=== PATIENT | female | born 1975 | race Caucasian/White ===

== ENCOUNTER 2019-02-14 10:44 | Outpatient (CLI) | payer MEDICAID, SELFPAY ==
--- NOTE | 2019-02-14 10:53 | CT_ITS ---
WS: [id number] CT ANGIOGRAM CEREBRAL AND CAROTID ARTERIES HISTORY: CEREBRAL ANEURYSM TECHNIQUE: CT angiogram is performed of the carotid and cerebral arteries. During arterial injection imaging is obtained from the skull vertex to the aortic arch in 1.25 mm imaging. Coronal and sagittal reformats are submitted. Additional multi planar reformats of the carotid and cerebral arteries are submitted, MIP imaging also reviewed. NASCET criteria utilized. All CT scans at [facility] use at least one of these dose optimization techniques: automated exposure control; mA and/or kV ad justment per patient size (includes targeted exams where dose is matched to clinical indication); or iterative reconstruction. CONTRAST: Omnipaque 350; 95 mL IV. DLP: 1870.60 mGy-cm. COMPARISON: 08/20/2018 and 05/17/[address] first performed is negative for hemorrhage, atrophy or edema. Carotid Angiogram: Right carotid: Common carotid artery: Arises normally from the innominate artery. No significant plaque or stenosis. Internal carotid artery: No plaque or stenosis. External carotid artery: Patent. Left carotid: Common carotid artery: Arises normally from the aorta. No significant plaque or stenosis. Internal carotid artery: No plaque or stenosis. External carotid artery: Patent. Right vertebral artery: Unremarkable. Left vertebral artery: Unremarkable. Arises normally from the subclavian artery. Subclavian arteries: No stenosis or significant abnormality. Upper thorax: Chronic emphysema. No nodule. Thyroid gland: Normal. Osseous structures: Unremarkable. CEREBRAL ANGIOGRAM: Intracranial vertebral arteries: Normal with no significant atherosclerosis. Basilar artery: No significant stenosis or occlusion. No aneurysm. Intracranial Internal carotid arteries: Again noted is a tiny bulging consistent with a very aneurysm in the supraclinoid RIGHT ICA measuring 2 mm. No increase in size. LEFT supraclinoid previously desc ribed aneurysm is not identified. No significant stenosis or atherosclerotic plaque. No new or progre ssing aneurysm. Middle cerebral arteries: Normal. Anterior cerebral arteries and ACOM: Normal. Posterior cerebral arteries and PCOM's: Normal. Dural venous sinuses are normally enhancing. Mastoid air cells: Normal. Paranasal sinuses: Normal. Calvarium: Normal. CT/CT angio headneck* [id number] IMPRESSION: 1. Normal carotid arteries. 2. 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 No ch puneet since 05/17/2016. No additional aneurysms identified.
[2019-02-14] MEDS: iohexol 350 mg/mL 100 mL Btl IV (11:22)
== END 2019-02-14 10:45 | disposition home or self-care (01) ==
LOC: RADWPI 10:47
PROVIDERS: Family Provider Nurse Practitioner; PCP Nurse Practitioner; Referring Provider Nurse Practitioner; Visit Provider Licensed Practical Nurse
DX: I67.1 Cerebral aneurysm, nonruptured (principal)
CPT/HCPCS: 70496; 70498; Q9967

== ENCOUNTER 2019-02-20 10:46 | Outpatient (CLI) | payer MEDICAID, SELFPAY ==
--- NOTE | 2019-02-20 10:50 | MM_ITS ---
WS: [id number] SCREENING DIGITAL MAMMOGRAM WITH CAD HISTORY: SCREENING COMPARISON: 02/14/2018 and 01/26/2017 Bilateral CC and MLO views submitted. Computer aided detection analyzed. Breast composition: There are scattered areas of fibroglandular density. No suspicious masses, microc alcifications or architectural distortion. Stable lymph node lateral RIGHT breast. MM/[place] [id number] IMPRESSION: BI-RADS: 2-Benign FOLLOW UP: 1 Year Follow-up
== END 2019-02-20 10:47 | disposition home or self-care (01) ==
LOC: RADSHAW 10:46
PROVIDERS: Family Provider Nurse Practitioner; PCP Family Medicine; Visit Provider Nurse Practitioner
DX: Z12.31 Encounter for screening mammogram for malignant neoplasm of breast (principal)
CPT/HCPCS: 77067

== ENCOUNTER 2019-03-02 06:45 | Emergency (ER) | payer MEDICAID, SELFPAY ==
[2019-03-02 07:01] VITALS: BP 188/77; PULSE 80; RESP 20; TEMP 36.7; O2SAT 95; BMI 37.6
--- NOTE | 2019-03-02 07:08 | ED_ITS ---
HPI - Back Pain/Injury General: Chief Complaint: Back Pain/Injury Stated Complaint: Back/side pain Time Seen by Provider: 03/02/19 06:59 History of Present Illness: Associated symptoms: Reports dysuria and hematuria; Deny abdominal pain, chills, fatigue, fever(s), nausea, urinary urgency or vomiting Review of Systems Const: Denies: fever, chills, body aches, change in appetite, fatigue or malaise ENMT: Denies: throat pain, ear pain, nasal discharge or nasal congestion Card: Denies: chest pain, edema, shortness of breath on exertion or shortness of breath when lying down Resp: Denies: shortness of breath, productive cough or non-productive cough GI: Denies: abdominal pain, nausea, vomiting, vomiting blood, coffee grounds in vomit, diarrhea, constipation, bloating, blood in stool or black tarry stool : Reports: flank pain, painful urination and blood in urine; Denies: difficulty urinating, urinary frequency or urinary urgency Skin/Breast: Denies: rash or itching PFSH ED PFSH: Statuses (acute, chronic, etc) shown below reflect problem list status as previously entered and may not be historically accurate Social History Smoking and tobacco status: current every day smoker Physical Exam Const: COMMON NORMALS: no apparent distress GENERAL APPEARANCE: cooperative and comfortable ORIENTATION/CONSCIOUSNESS: Yes awake, Yes oriented to person, Yes oriented to place and Yes oriented to time HENMT: COMMON NORMALS: normocephalic, head/scalp atraumatic, hearing grossly normal bilaterally, external ears normal, EAC's normal, TM's normal bilaterally, nasal mucous membranes and turbinates normal, moist oral mucous membranes and oropharynx normal HEAD & SCALP: normocephalic and atraumatic NOSE: nasal mucous membranes and turbinates normal EXTERNAL EAR: Yes external ears normal EXTERNAL AUDITORY CANAL: EAC's normal TYMPANIC MEMBRANE: TM's normal bilaterally Eye: COMMON NORMALS: PERRL, EOMs intact bilaterally, conjunctivae normal and no scleral icterus CONJUNCTIVA: Yes conjunctivae normal PUPIL: Yes PERRL Neck/C-Spine: COMMON NORMALS: full ROM, no lymphadenopathy, supple and no JVD Lymph: LYMPHATIC: no lymphadenopathy noted and no lymphedema noted Resp: COMMON NORMALS: normal respiratory effort, no retractions, no use of accessory muscles and clear to auscultation bilaterally AUSCULTATION: clear to auscultation bilaterally Cardio: COMMON NORMALS: no JVD, regular rate, regular rhythm and no murmurs RATE: regular rate RHYTHM: regular rhythm GI: COMMON NORMALS: soft to palpation and no hepatosplenomegaly AUSCULTATION: Yes normoactive bowel sounds PALPATION: Yes soft, No tender, No guarding and Yes no hepatosplenomegaly : BLADDER/KIDNEY EXAM: Yes CVA tenderness on the right Back/Pelvis: GENERAL BACK: Yes CVA tenderness Extremity: COMMON NORMALS: normal to inspection, normal capillary refill, no clubbing, cyanosis or edema, no calf tenderness and no pedal edema Neuro: SENSORIUM/ORIENTATION: Yes oriented to person, Yes oriented to place and Yes oriented to time Skin: COMMON NORMALS: no rashes or lesions noted GENERAL SKIN EXAM: no rashes or lesions noted Course ED course: Discussed with Dr. Huddleston. Will go ahead and treat her as an outpatient her pain is under control now here in the emergency room will discharge home pain medications antiemetics Flomax and a urine strainer. Will have patient follow-up with Dr. Huddleston on Monday in the office should be n.p.o. at that time pain becomes uncontrolled return to the emergency room Vital Signs: Vital signs: Vital Signs Temperature 98.1 F 03/02/19 07:01 Pulse Rate 87 03/02/19 09:18 Respiratory Rate 20 H 03/02/19 07:01 Blood Pressure 124/79 03/02/19 09:18 Pulse Oximetry 93 03/02/19 09:18 MDM - Back Pain/Injury Lab Data: Labs: Lab Results 03/02/19 03/02/19 03/02/19 Range/Units 07:20 07:20 07:23 WBC 11.2 H (4.0-10.0) 10^3/ uL RBC 5.03 (4.1-5.3) 10^6/u L Hgb 13.3 (11.5-15.3) g/dL Hct 41.8 (37.0-47.0) % MCV 83.1 (81-99) fL MCH 26.4 L (28.0-34.0) pg MCHC 31.8 (30.0-36.0) g/dL RDW 13.8 (12.1-15.1) % Plt Count 277 (130-400) 10^3/c mm MPV 9.2 (7.4-10.4) fL Neut % (Auto) 75.1 % Lymph % (Auto) 16.8 % [place] % (Auto) 5.5 % Eos % (Auto) 1.9 % Baso % (Auto) 0.3 % Neut # (Auto) 8.4 H (1.8-7.7) 10^3/u L Lymph # (Auto) 1.9 (0.8-4.8) 10^3/u L [place] # (Auto) 0.6 (0.2-0.9) 10^3/u L Eos # (Auto) 0.2 (0.0-0.8) 10^3/u L Baso # (Auto) 0.0 (0.0-0.1) 10^3/u L Nucleated RBC % (a uto) 0 % Nucleated RBCs # 0.0 /100WBC Sodium 137 (136-145) mmol/L Potassium 4.6 (3.5-5.1) mmol/L Chloride 100 (98-107) mmol/L Carbon Dioxide 25 (22-29) mmol/L Anion Gap 16.6 (5-19) BUN 14 (6-20) mg/dL Creatinine 0.8 (0.5-0.9) mg/dL GFR Calculation 78.3 L (90-130) mL/min Glucose 134 H (74-109) mg/dL Calcium 9.9 (8.5-10.5) mg/dL Total Bilirubin 0.4 (0.15-1.2) mg/dL AST 19 (0-32) U/L ALT 27 (0-33) U/L Alkaline Phosphata se 109 H (35-105) IU/L Total Protein 7.2 (6.6-8.7) g/dL Albumin 4.8 (3.5-5.2) g/dL Globulin 2.4 (1.3-4.6) g/dL Urine Color Yellow (Yellow) Urine Appearance Sl hazy (CLEAR) Urine pH 5 (5-7) Ur Specific Gravit y 1.020 (1.005-1.030) Urine Protein Trace (Negative) Urine Glucose (UA) Norm (Normal) Urine Ketones 1+ H (Negative) Urine Occult Blood 3+ H (Negative) Urine Nitrate Negative (Negative) Urine Bilirubin 1+ H (NEGATIVE) Urine Urobilinogen Norm (Negative) mg/dL Ur Leukocyte [place] a[place] Negative (Negative) Urine RBC 50-80 H (0-2) /hpf Urine WBC 5-10 H (0-5) /hpf Ur Squamous Epith Cells 5-10 H (0-5) Urine Bacteria 1+ H (NONE) Hyaline Casts Rare Urine Mucus Trace Urine Yeast Trace Imaging Data^: KUB: Radiologist's impression: Ordering Provider/Ordering MD: Rhys Stockton DO Date of Service: 03/02/19 Procedure(s): XR KUB portable [id number] Accession Number(s): [id number] Report Number: [id number] PROCEDURE INFORMATION: Exam: XR Abdomen, 1 View Exam date and time: 03/02/2019 7:20 AM Age: 44 years old Clinical indication: Abdominal pain; Right; Prior surgery; Surgery type: Csection; Patient HX: Transient RT flank pain x 3 days. History of renal calculus. ; Additional info: Renal stone/flank pain TECHNIQUE: Imaging protocol: XR of the abdomen. Views: Frontal supine view of the abdomen. 1 View. COMPARISON: CR Abdomen 2 views [id number] 07/21/2015 9:42 PM FINDINGS: Gastrointestinal tract: Scattered bowel gas. Organs: Limited delineation of the renal outline bilaterally. Bones/joints: Two adjacent calcifications suspected in the right abdomen slightly above the medial right iliac bone which could be genitourinary in location. Calcifications measure approximately 0.5 and 0.4 cm. XR/XR KUB portable [id number] IMPRESSION: 1. Two rounded calcifications right abdomen which could be genitourinary in location. 2. Otherwise unremarkable KUB. Dictated By: Mary Carmen Hammer DO CT Abd/Pel: Radiologist's impression: Exam: CT Abdomen And Pelvis Without Contrast Exam date and time: 03/02/2019 8:16 AM Age: 44 years old Clinical indication: Abdominal pain; Right; Prior surgery; Surgery date: 6+ months; Surgery type: Csection; Patient HX: Transient RT flank pain. X3 days, HX of renal stones; Additional info: Renal stones/hematuria TECHNIQUE: Imaging protocol: Computed tomography of the abdomen and pelvis without contrast. Total DLP: 1587.27 mGy-cm Radiation optimization: All CT scans at this facility use at least one of these dose optimization techniques: automated exposure control; mA and/or kV adjustment per patient size (includes targeted exams where dose is matched to clinical indication); or iterative reconstruction. COMPARISON: CT Abdomen/Pelvis Renal [id number] 05/29/2017 4:41 AM FINDINGS: Lungs: Areas of pleural parenchymal scarring or atelectasis lower lungs. Liver: Hepatomegaly longitudinal diameter 20.6 cm. Gallbladder and bile ducts: Normal. No calcified stones. No ductal dilation. Pancreas: Normal. No ductal dilation. Spleen: Scattered splenic granulomatous calcifications. Adrenals: Bilateral adrenal gland nodules measuring 1.5 cm on the right and 2.0 cm on the left are stable. There is a nodule anterior to the left kidney below the margin of left adrenal gland suspicious for retroperitoneal lymph node is stable measuring 1.7 cm. Other small retroperitoneal lymph nodes are present. Kidneys and ureters: Stranding surrounding the right kidney with right pelvicaliectasis with obstructing calculi in the proximal right ureter with suspected 2 adjacent calculi upper calculus measuring 0.42 by 0.51 cm and the lower calculus measuring 0.31 by 0.46 cm. Stomach and bowel: Scattered colonic diverticuli. Appendix: No evidence of appendicitis. Intraperitoneal space: Unremarkable. No free air. No significant fluid collection. Vasculature: Trace calcification distal abdominal aorta. Lymph nodes: See Adrenals Finding. Bladder: Unremarkable as visualized. Reproductive: Unremarkable as visualized. Bones/joints: Degenerative change of the spine. Soft tissues: Minimal umbilical hernia containing fatty omentum. Cutaneous or subcutaneous cyst lower left chest wall. CT/CT kidney stone [id number] IMPRESSION: 1. Obstructing proximal right ureteral calculi. 2. Stable bilateral adrenal gland nodules by Hounsfield density most suggestive of benign adenomas.No follow-up is necessary. 3. Minor colonic diverticulosis. 4. Hepatomegaly. Radiation Dose CTDIVOL = (mGy): DLP = 1587.27 (mGy-cm) Dictated By: Mary Carmen Hammer DO Discharge Plan Discharge Patient Disposition: Home, Self-Care Clinical Impression: Nephrolithiasis Condition: Stable Prescriptions: [place] 5-325 mg tablet 1 tab PO Q6H PRN (Reason: pain) Qty: 20 RF: 0 Flomax 0.4 mg capsule 0.4 mg PO Q24H Qty: 14 RF: 0 Zofran 4 mg tablet 4 mg PO Q6H PRN (Reason: nausea and vomiting) Qty: 20 RF: 0 No Action hydroxyzine HCl 25 mg Tablet 25 mg PO BID PRN (Reason: sleep) RF: 0 Symbicort 80-4.5 mcg/actuation Hfa Aerosol Inhaler See Rx Instructions .ROUTE .COMPLEX RF: 0 Discharge Orders: Discharge Order (Routine); Ordered 03/02/19 Ordered By: Rhys Stockton Referrals: Ruddy Huddleston MD [Physician] - (Follow up for renal stones on Monday. Please do not eat after midnoght on Monday night in the event a procedure is needed for the kidney stones.) Discharge Diet: Advance as tolerated Discharge Activity: Increase activity as tolerated Discharge Date/Time: 03/02/19 09:48 Coding Level of Care Code ED Product Development Consultant for Chg Fwd Exam Problem Focused
--- NOTE | 2019-03-02 07:11 | XRR_ITS ---
PROCEDURE INFORMATION: Exam: XR Abdomen, 1 View Exam date and time: 03/02/2019 7:20 AM Age: 44 years old Clinical indication: Abdominal pain; Right; Prior surgery; Surgery type: Csection; Patient HX: Transient RT flank pain x 3 days. History of renal calculus. ; Additional info: Renal stone/flank pain TECHNIQUE: Imaging protocol: XR of the abdomen. Views: Frontal supine view of the abdomen. 1 View. COMPARISON: CR Abdomen 2 views [id number] 07/21/2015 9:42 PM FINDINGS: Gastrointestinal tract: Scattered bowel gas. Organs: Limited delineation of the renal outline bilaterally. Bones/joints: Two adjacent calcifications suspected in the right abdomen slightly above the medial right iliac bone which could be genitourinary in location. Calcifications measure approximately 0.5 and 0.4 cm. XR/XR KUB portable [id number] IMPRESSION: 1. Two rounded calcifications right abdomen which could be genitourinary in location. 2. Otherwise unremarkable KUB.
[2019-03-02 07:24] LABS: Basophils % 0.3 %; Eosinophils # 0.2 10^3/uL (0.0-0.8); Eosinophils % 1.9 %; Hematocrit 41.8 % (37.0-47.0); Hemoglobin 13.3 g/dL (11.5-15.3); Lymphocytes # 1.9 10^3/uL (0.8-4.8); Lymphocytes % 16.8 %; Mean Corpuscular HGB Conc 31.8 g/dL (30.0-36.0); Mean Corpuscular Hemoglobin 26.4 pg (28.0-34.0); Mean Corpuscular Volume 83.1 fL (81-99); Mean Platelet Volume 9.2 fL (7.4-10.4); Monocytes # 0.6 10^3/uL (0.2-0.9); Monocytes % 5.5 %; Neutrophils # 8.4 10^3/uL (1.8-7.7); Neutrophils % 75.1 %; Nucleated Red Blood Cells % 0 %; Platelet Count 277 10^3/cmm (130-400); Red Blood Count 5.03 10^6/uL (4.1-5.3); Red Cell Distribution Width 13.8 % (12.1-15.1); White Blood Count 11.2 10^3/uL (4.0-10.0)
[2019-03-02 07:31] VITALS: O2SAT 96
--- NOTE | 2019-03-02 07:33 | PC.NURSE ---
portable xray at bedside
[2019-03-02] MEDS: sodium chloride 0.9% 1,000 ML 999 ML IV (07:41)
[2019-03-02] MEDS: morphine 4 mg/mL SDV 1 mL IVP ×2 (07:41→08:26)
[2019-03-02] MEDS: ondansetron 2 mg/ML SDV 2 mL 4 MG IVP (07:41)
[2019-03-02 07:42] LABS: Alanine Aminotransferase 27 U/L (0-33); Albumin Level 4.8 g/dL (3.5-5.2); Alkaline Phosphatase 109 IU/L (35-105); Anion Gap 16.6 (5-19); Aspartate Amino Transferase 19 U/L (0-32); Blood Urea Nitrogen 14 mg/dL (6-20); Calcium 9.9 mg/dL (8.5-10.5); Carbon Dioxide 25 mmol/L (22-29); Chloride 100 mmol/L (98-107); Globulin 2.4 g/dL (1.3-4.6); Glomerular Filtration Rate 78.3 mL/min (90-130); Glucose 134 mg/dL (74-109); Potassium 4.6 mmol/L (3.5-5.1); Sodium 137 mmol/L (136-145); Total Bilirubin 0.4 mg/dL (0.15-1.2); Total Protein 7.2 g/dL (6.6-8.7)
[2019-03-02 07:52] LABS: Add Urine Microscopic? YES; Bilirubin Urine 1+ (NEGATIVE); Blood Urine 3+ (Negative); Glucose Urine UA Norm (Normal); Ketones Urine 1+ (Negative); Leukocyte Esterase Urine Negative (Negative); Nitrate Urine Negative (Negative); Protein Urine Trace (Negative); Urine Appearance SL Hazy (CLEAR); Urine Color Yellow (Yellow); Urobilinogen Urine Norm (Negative); pH Urine 5 (5-7)
[2019-03-02 07:54] LABS: Hyaline Casts Urine RARE; Mucus Urine TRACE
[2019-03-02 07:55] LABS: RBC Urine 50-80 /hpf (0-2)
[2019-03-02 07:56] LABS: Bacteria Urine 1+
[2019-03-02 07:58] LABS: Add Urine Culture? Yes
--- NOTE | 2019-03-02 08:11 | CTR_ITS ---
PROCEDURE INFORMATION: Exam: CT Abdomen And Pelvis Without Contrast Exam date and time: 03/02/2019 8:16 AM Age: 44 years old Clinical indication: Abdominal pain; Right; Prior surgery; Surgery date: 6+ months; Surgery type: Csection; Patient HX: Transient RT flank pain. X3 days, HX of renal stones; Additional info: Renal stones/hematuria TECHNIQUE: Imaging protocol: Computed tomography of the abdomen and pelvis without contrast. Total DLP: 1587.27 mGy-cm Radiation optimization: All CT scans at this facility use at least one of these dose optimization techniques: automated exposure control; mA and/or kV adjustment per patient size (includes targeted exams where dose is matched to clinical indication); or iterative reconstruction. COMPARISON: CT Abdomen/Pelvis Renal [id number] 05/29/2017 4:41 AM FINDINGS: Lungs: Areas of pleural parenchymal scarring or atelectasis lower lungs. Liver: Hepatomegaly longitudinal diameter 20.6 cm. Gallbladder and bile ducts: Normal. No calcified stones. No ductal dilation. Pancreas: Normal. No ductal dilation. Spleen: Scattered splenic granulomatous calcifications. Adrenals: Bilateral adrenal gland nodules measuring 1.5 cm on the right and 2.0 cm on the left are stable. There is a nodule anterior to the left kidney below the margin of left adrenal gland suspicious for retroperitoneal lymph node is stable measuring 1.7 cm. Other small retroperitoneal lymph nodes are present. Kidneys and ureters: Stranding surrounding the right kidney with right pelvicaliectasis with obstructing calculi in the proximal right ureter with suspected 2 adjacent calculi upper calculus measuring 0.42 by 0.51 cm and the lower calculus measuring 0.31 by 0.46 cm. Stomach and bowel: Scattered colonic diverticuli. Appendix: No evidence of appendicitis. Intraperitoneal space: Unremarkable. No free air. No significant fluid collection. Vasculature: Trace calcification distal abdominal aorta. Lymph nodes: See Adrenals Finding. Bladder: Unremarkable as visualized. Reproductive: Unremarkable as visualized. Bones/joints: Degenerative change of the spine. Soft tissues: Minimal umbilical hernia containing fatty omentum. Cutaneous or subcutaneous cyst lower left chest wall. CT/CT kidney stone [id number] IMPRESSION: 1. Obstructing proximal right ureteral calculi. 2. Stable bilateral adrenal gland nodules by Hounsfield density most suggestive of benign adenomas.No follow-up is necessary. 3. Minor colonic diverticulosis. 4. Hepatomegaly. Radiation Dose CTDIVOL = (mGy): DLP = 1587.27 (mGy-cm)
[2019-03-02 08:22] VITALS: BP 143/89; PULSE 89; O2SAT 94
--- NOTE | 2019-03-02 08:31 | PC.NURSE ---
pt transported to CT by stretcher with tech
--- NOTE | 2019-03-02 08:38 | PC.NURSE ---
pt back from CT
[2019-03-02 09:18] VITALS: BP 124/79; PULSE 87; O2SAT 93
[2019-03-02] MEDS: HYDROmorphone 1 mg/mL INJ 1 mL IVP (09:28)
--- NOTE | 2019-03-04 14:38 | DCPLANNER ---
manager heart failure had message to schedule a follow up appointment for patient with Dr. Huddleston. manager heart failure called the clinic, spoke with Shama, was told that patient had an appointment scheduled for 03.04.19 and that patient did attend the appointment.
== END 2019-03-02 09:48 | disposition home or self-care (01) ==
PROVIDERS: Emergency Provider Family Medicine; Family Provider Nurse Practitioner; PCP Family Medicine
DX: N20.0 Calculus of kidney (principal); F17.210 Nicotine dependence, cigarettes, uncomplicated
CPT/HCPCS: 36415; 74018; 74176; 80053; 81001; 85025; 87086; 96360; 96361; 96374; 99282; A9270; J1170; J2270; J2405; J7030

== ENCOUNTER 2019-03-04 08:37 | Outpatient (CLI) | payer MEDICAID, SELFPAY ==
--- NOTE | 2019-03-04 09:45 | XRR_ITS ---
PROCEDURE INFORMATION: Exam: XR Abdomen, 1 View Exam date and time: 03/04/2019 8:55 AM Age: 44 years old Clinical indication: Nephrolithiasis TECHNIQUE: Imaging protocol: XR of the abdomen. Views: Frontal supine view of the abdomen. 1 View. COMPARISON: XR ABDOMEN 03/02/2019 7:[address] ABDOMEN/PELVIS 03/02/2019 8:48 AM FINDINGS: Gastrointestinal tract: No bowel obstruction, colitis or diverticulitis. Bones/joints: No acute osseous abnormality. Soft tissues: Two adjacent right ureteral calculi are still present and are unchanged in position. XR/XR KUB [id number] IMPRESSION: Unchanged right ureteral calculi.
== END 2019-03-04 08:38 | disposition home or self-care (01) ==
LOC: RAD 08:42
PROVIDERS: Family Provider Nurse Practitioner; PCP Family Medicine; Visit Provider Urology
DX: N20.1 Calculus of ureter (principal)
CPT/HCPCS: 74018; 81001

== ENCOUNTER 2019-03-15 09:15 | Outpatient (CLI) | payer MEDICAID, SELFPAY ==
--- NOTE | 2019-03-15 09:15 | XRR_ITS ---
PROCEDURE INFORMATION: Exam: XR Abdomen, 1 View Exam date and time: 03/15/2019 9:23 AM Age: 44 years old Clinical indication: Condition or disease; Other: Right ureteral stone; Prior surgery; Surgery date: 6+ months; Surgery type: C section x3 TECHNIQUE: Imaging protocol: XR of the abdomen. Views: Frontal supine view of the abdomen. 1 View. COMPARISON: CR XR KUB [id number] 03/04/2019 8:[address] kidney stone [id number] 03/02/2019 8:48:24 AM FINDINGS: Gastrointestinal tract: Normal. No bowel dilation. Organs: The two previously noted right ureteral stones are poorly visualized on this exam, but are likely projecting over the upper right sacral ala. Bones/joints: There is no acute osseous abnormality. XR/XR KUB [id number] IMPRESSION: The two previously noted right ureteral stones are poorly visualized on this exam, but are likely projecting over the upper right sacral ala.
== END 2019-03-15 09:16 | disposition home or self-care (01) ==
LOC: RAD 09:15
PROVIDERS: Family Provider Nurse Practitioner; PCP Family Medicine; Visit Provider Urology
DX: N20.1 Calculus of ureter (principal)
CPT/HCPCS: 74018; 81001

== ENCOUNTER 2019-04-02 12:02 | Outpatient (CLI) | payer MEDICAID, SELFPAY ==
--- NOTE | 2019-04-02 12:04 | XR_ITS ---
WS: [id number] KUB, 04/02/2019 Clinical Data: Ureteral stone Comparison: KUB, 03/15/2019 Findings: There are 2 right ureteral calculi may now be at the right ureterovesical junction. No calculi overly ing the kidneys can be seen. XR/XR KUB [id number] Impression: Probable migration of 2 distal right ureteral calculi to the right ureterovesic al junction.
== END 2019-04-02 12:03 | disposition home or self-care (01) ==
LOC: RAD 12:02
PROVIDERS: Family Provider Nurse Practitioner; PCP Family Medicine; Visit Provider Urology
DX: N20.1 Calculus of ureter (principal)
CPT/HCPCS: 74018; 81001

== ENCOUNTER 2019-04-16 12:42 | Outpatient (CLI) | payer MEDICAID, SELFPAY ==
--- NOTE | 2019-04-16 08:00 | XR_ITS ---
WS: [id number] KUB, 04/16/2019 Clinical Data: RIGHT URETERAL STONE Comparison: KUB, 04/02/2019. Findings: No abnormal intraabdominal masses or calcifications are seen. There is no dilatated small bowel or ev idence of obstruction. The 2 possible distal right ureteral calculi are no longer seen. XR/XR KUB [id number] Impression: Negative KUB.
== END 2019-04-16 12:43 | disposition home or self-care (01) ==
LOC: RAD 12:43
PROVIDERS: Family Provider Nurse Practitioner; PCP Nurse Practitioner; Visit Provider Urology
DX: N20.1 Calculus of ureter (principal)
CPT/HCPCS: 74018; 81001

== ENCOUNTER 2019-08-19 09:51 | Outpatient (CLI) | payer MEDICAID, SELFPAY ==
--- NOTE | 2019-08-19 10:00 | CT_ITS ---
WS: [id number] CTA scan of the head and neck. Additional two-dimensional coronal and sagittal reconstruction along w ith MIP images was performed. 08/19/2019 Clinical Data: Aneurysms Comparison: CTA of the head and neck, 02/14/2019, 08/20/2018, 05/17/2016. DLP: 1963.[address] scans at [facility] use at least one of these dose optimization techniques: automat ed exposure control; mA and/or kV adjustment per patient size (includes targeted exams where dose is matched to clinical indication); or iterative reconstruction. Findings: The carotid arteries bifurcate normally into the internal carotid arteries. No stenosis or occlusion is seen. The vertebral arteries are normal. There is no lymphadenopathy within the neck. The intracer ebral circulation shows that the internal carotid arteries bifurcate into the anterior and middle cer ebral arteries. The basilar arterial system is normal. No aneurysms are seen. The possible infundibul um of the origin of the right communicating artery is seen but unchanged. The arterial and venous cir culation of the head is unremarkable and unchanged from the prior studies. There is no prevertebral soft tissue swelling. The bones of the cervical spine and skull demonstrate no erosions. The intraorbital contents, paranasal sinuses, internal auditory canals and sella turcica are normal. The parotid glands are normal. The parapharyngeal areas are unremarkable. The larynx is symmetrical. The thyroid gland shows normal enhancement. The cerebral ventricles are normal without s hift. The posterior fossa is unremarkable. CT/CT angio headneck* [id number] Impression: 1. Negative for stenosis of the carotid arteries of the neck. 2. No acute change is the intracerebral vascular system with the finding of a s mall infundibulum of the origin of the right posterior communicating artery fro m the supraclinoid portion of the right internal carotid artery.
[2019-08-19] MEDS: iohexol 350 mg/mL 100 mL Btl IV (10:26)
== END 2019-08-19 09:52 | disposition home or self-care (01) ==
LOC: RADWPI 09:55
PROVIDERS: Family Provider Physician Assistant; PCP Physician Assistant; Visit Provider Licensed Practical Nurse
DX: I67.1 Cerebral aneurysm, nonruptured (principal)
CPT/HCPCS: 70496; 70498; Q9967

== ENCOUNTER → 2019-09-17 14:49 | Outpatient (BNVA) | payer MEDICAID, SELFPAY | PROVIDERS: Family Provider Physician Assistant; PCP Physician Assistant; Visit Provider Licensed Practical Nurse | DX: I67.1 Cerebral aneurysm, nonruptured (principal); F17.210 Nicotine dependence, cigarettes, uncomplicated | CPT/HCPCS: 99213 ==

== ENCOUNTER 2020-04-03 08:44 | Outpatient (CLI) | payer MEDICAID, SELFPAY ==
--- NOTE | 2020-04-03 08:48 | MM_ITS ---
WS: [id number] Exam: [place] [id number] Date/Time of Exam: 04/03/2020 8:48 AM Reason For Exam: SCREENING VIEWS: MLO and CC views both breasts. Comparison made with prior exam of 02/20/2019, 02/14/2018, 01/26/2017.. Findings: There was no sign of mass, architectural distortion or suspicious calcification in either breast. Sc attered fibroglandular densities MM/[place] [id number] Impression: BI-RADS: 2-Benign FOLLOW-UP: 1 Year Follow-up This mammogram was also analyzed by the Computer Aided Detection System R2 Imag e Auto Refinisher.
== END 2020-04-03 08:45 | disposition home or self-care (01) ==
LOC: RADSHAW 08:47
PROVIDERS: PCP Physician Assistant; Visit Provider Physician Assistant
DX: Z12.31 Encounter for screening mammogram for malignant neoplasm of breast (principal)
CPT/HCPCS: 77067

== ENCOUNTER → 2020-08-26 10:40 | Outpatient (BNVA) | payer MEDICAID, SELFPAY | PROVIDERS: PCP Physician Assistant; Visit Provider Specialist | DX: I67.1 Cerebral aneurysm, nonruptured (principal); F17.200 Nicotine dependence, unspecified, uncomplicated | CPT/HCPCS: 99204 ==

== ENCOUNTER 2020-09-17 06:46 | Outpatient (CLI) | payer MEDICAID, SELFPAY ==
--- NOTE | 2020-09-17 07:15 | MR_ITS ---
WS: [id number] MRA HEAD TECHNIQUE: Axial 3-D TOF images obtained with axial images and axial, sagittal, and coronal 2-D refor matted images. CLINICAL INFORMATION: I67.1 - Cerebral aneurysm, nonruptured COMPARISON: CTA 7 and CTA 4 CTA and MRI 2017. FINDINGS: Distal vertebral arteries are patent. Basilar artery is patent. Normal vascularity to the [employer] territo noemi bilaterally. Both ICAs are patent at the skull base. Normal vascularity to the JAZZY and MCA territories bilaterally . Patent anterior communicating artery. No evidence of flow-limiting stenosis. Stable tiny infundibulum at the RIGHT posterior communicating artery origin measuring 2.3 mm is uncha nged since 2017. Previously described potential LEFT supraclinoid aneurysm or infundibulum is not seen today Additional tiny 2.9 mm infundibulum or aneurysm arising from the RIGHT distal cavernous carotid arter y near the ophthalmic artery origin is unchanged over multiple prior studies dating back to 2017. MR/MR angio head wo con [id number] IMPRESSION: 1. Stable tiny infundibulum at the right posterior communicating artery origin measuring 2.3 mm is unchanged since 2017. 2. Additional tiny 2.9 mm infundibulum or aneurysm arising from the right dist al cavernous carotid artery near the ophthalmic artery origin is unchanged over multiple prior studies dating back to 2017. 3. No other aneurysms. No flow-limiting stenosis.
== END 2020-09-17 06:47 | disposition home or self-care (01) ==
LOC: RADSHAW 06:47
PROVIDERS: PCP Physician Assistant; Visit Provider Specialist
DX: I67.1 Cerebral aneurysm, nonruptured (principal)
CPT/HCPCS: 70544

== ENCOUNTER → 2020-09-22 11:39 | Outpatient (BNVA) | payer MEDICAID, SELFPAY | PROVIDERS: PCP Physician Assistant; Visit Provider Specialist | DX: I67.1 Cerebral aneurysm, nonruptured (principal) | CPT/HCPCS: 99214 ==

== ENCOUNTER 2020-12-06 07:31 | Emergency (ER) | payer MEDICAID, SELFPAY ==
[2020-12-06 07:54] VITALS: BP 137/85; PULSE 75; RESP 18; TEMP 36.9; O2SAT 96; BMI 35.4
[2020-12-06 08:00] VITALS: BP 137/85; PULSE 72; RESP 18; O2SAT 96
--- NOTE | 2020-12-06 08:00 | XRR_ITS ---
PROCEDURE INFORMATION: Exam: XR Chest Exam date and time: 12/06/2020 8:00 AM Age: 45 years old Clinical indication: Cough; Additional info: Dyspnea, cough TECHNIQUE: Imaging protocol: XR of the chest. Views: 2 views. COMPARISON: CR Chest 2 views* [id number] 09/27/2016 3:03 PM FINDINGS: Lungs: Streaky bibasilar atelectasis noted. No consolidation. Pleural spaces: Unremarkable. No pleural effusion. No pneumothorax. Heart/Mediastinum: Unremarkable. No cardiomegaly. Bones/joints: Unremarkable. XR/XR chest 2V* [id number] IMPRESSION: No evidence of active cardiopulmonary disease. Radiation Dose CTDIVOL = (mGy): DLP = (mGy-cm)
--- NOTE | 2020-12-06 08:13 | W.ED.GENADLT ---
HPI - General Adult General: Chief complaint: General Medical Stated complaint: SORE THROAT/COUGH/HEADACHE/SWOLLEN TONSILS Time Seen by Provider: 12/06/20 07:48 History of Present Illness: HPI narrative: Patient is a 45-year-old female with a history of brain aneurysm presenting to the emergency room for concerns of worsening cough since Monday. Patient's friend son is sick at home with RSV. Since Monday, patient has had throat pain, nonstop coughing. Patient denies any fever or chills, shortness of breath, abdominal complaints nausea/vomiting. Patient has been able to tolerate p.o. Patient says nothing works for her cough including raw honey and mucinex and that she has not had any sleep. Onset: 3 days ago Duration: 3days Location:home Severity: mild/moderate Review of Systems Narrative: Constitutional: No fever, no chills. HEENT: No vision changes, +throat pain CV: No chest pain, no palpitations PULM: +cough, no dyspnea. GI: No abdominal pain, no N/V/D. : No dysuria MSKEL: No muscle pain SKIN: No new rashes, no lesions. NEURO: No headache, no focal weakness. HEME: No visible bruises PSYCH: Normal mood PFSH ED PFSH: Medical History (Updated 12/06/20 @ 08:18 by Lillie Goff MD) Brain aneurysm Right ureteral stone Surgical History delivery delivered 3 C-SECTIONS Family History Mother Hypertension Father Hypertension Social History Alcohol intake: never Household members: children Marital status: Current occupational status: unemployed History of recent travel: No Physical Exam Narrative: EXAM NARRATIVE: Head: Atraumatic Eyes: PERRL, conjunctiva without injection ENT: Mucous membrane moist OC/OP: ?Oral cavity without masses or lesions seen on lips, gingiva, buccal mucosa, floor of mouth, tongue, palate, or base of tongue; Oropharynx clear, no masses, no lesions, uvula midline NECK: Supple, ROM intact LUNGS: LCTAB, no crackles/rhonchi CV: RRR ABDOMEN: Soft, nontender in all quadrants EXTREMITY: Normal ROM SKIN: No rash or erythema NEURO: Awake and alert, no focal motor deficits PSYCH: Normal mood and affect Course Vital Signs: Vital signs: Vital Signs Temperature 98.4 F 12/06/20 07:54 Pulse Rate 67 12/06/20 10:00 Respiratory Rate 16 12/06/20 10:00 Blood Pressure 117/70 12/06/20 10:00 Pulse Oximetry 95 12/06/20 10:00 MDM - General Adult MDM Narrative: Medical decision making narrative: 45-year-old female presents the emergency room with cough x3 days in the setting of sore throat and grandson with RSV. Exam, patient is hemodynamically stable. No focal findings back of the throat. No suspicion for airway compromise. Lungs appear to be clear bilaterally. Chest x-ray negative for any acute findings. Strep is negative today. Suspect that this is viral in nature. Patient received Tessalon Perles in the emergency room and improved symptomatically. She is able to tolerate p.o. without any difficulty. Around 10:18 AM, shortly prior to discharge, patient tells me that her headache bifrontal has gradually worsened from yesterday night. Patient took ibuprofen from her bag some improvement of pain. Given the history of aneurysm, I have performed shared decision making with patient for additional workup for SAH vs going home. Patient denies any acute sudden onset of severe headache. This present time, I do not think that this is subarachnoid hemorrhage from the aneurysm given patient had sinus symptoms and no nuchal rigidity. However, I cannot entirely rule out the possibility of subarachnoid bleed. Discussed with the patient and at this time, patient elects to go home with serial observation. I have discussed the risk which include paralysis, neurological deficits and possible . Patient verbalized understanding and still elects to go home without further imaging at this time. Rx tessalon pearle for coughing I have given patient strict instruction to avoid having the Tessalon Perles places where her 9M grandson can reach it this medicine is cardiotoxic and can kill down patients. Patient is aware of this and verbalizes understanding. Disposition: Discharge. Patient counseled regarding diagnostic impression, treatment plan. Patient given ED strict return precautions to return for continuation, worsening, or development of new symptoms. Instructed to f/u w/ PCP regarding symptoms today. Patient verbalized understanding. Lab Data: Labs: Lab Results 12/06/20 09:15 Group A Strep Rapi d Negative (Negative) Imaging Data^: Other Imaging: Radiologist's impression: [address], [place] [address]DZsd ReportSigned Patient: Rosalina Summers AUnit #: [id number]: 1975Acct#:[id number]/Sex: 45 / FADM Date: 12/06/20Loc: ERRoom/Bed:Attending Dr: Ordering Provider/Ordering MD: Lillie Goff MD Date of Service: 12/06/20 Procedure(s): XR chest 2V* [id number] Accession Number(s): [id number] Report Number: [id number] PROCEDURE INFORMATION: Exam: XR Chest Exam date and time: 12/06/2020 8:00 AM Age: 45 years old Clinical indication: Cough; Additional info: Dyspnea, cough TECHNIQUE: Imaging protocol: XR of the chest. Views: 2 views. COMPARISON: CR Chest 2 views* [id number] 09/27/2016 3:03 PM FINDINGS: Lungs: Streaky bibasilar atelectasis noted. No consolidation. Pleural spaces: Unremarkable. No pleural effusion. No pneumothorax. Heart/Mediastinum: Unremarkable. No cardiomegaly. Bones/joints: Unremarkable. XR/XR chest 2V* [id number] IMPRESSION: No evidence of active cardiopulmonary disease. Radiation Dose CTDIVOL = (mGy): DLP = (mGy-cm) Dictated By:Fredy De La O By:Fredy De La O Date/Time:12/06/20 0902DD/ 0800 Discharge Plan Discharge Patient Disposition: Home Clinical Impression: Cough Condition: Stable Prescriptions: New Tessalon Perles 100 mg capsule 100 mg PO BID PRN (Reason: cough) Qty: 10 RF: 0 No Action minocycline 100 mg capsule 100 mg PO DAILY RF: 0 albuterol sulfate [ProAir HFA] 90 mcg/actuation HFA aerosol inhaler 2 puff INHALATION 6XD PRN (Reason: shortness of breath or wheezing) Qty: 18 RF: 2 budesonide-formoterol [Symbicort] 80-4.5 mcg/actuation HFA aerosol inhaler 2 puff INHALATION BID 30 Days Qty: 10.2 RF: 1 Symbicort 80-4.5 mcg/actuation Hfa Aerosol Inhaler See Rx Instructions .ROUTE .COMPLEX RF: 0 Discharge Orders: Discharge ED (Routine); Ordered 12/06/20 Ordered By: Lillie Goff Referrals: Betty Smith PA [Primary Care Provider] - Discharge Diet: Advance as tolerated Discharge Activity: Resume usual activity Patient Instructions: Acute Cough (ED) Activity Restrictions/Additional Instructions: Come back to the emergency room if your cough worsens, if any fever or chills, if you have difficulty speaking, if you have any new or concerning complaints. Follow-up with your primary care provider for further evaluation of your symptoms. Coding Level of Care Code ED Chocolate Molder for Nataly Wolf
[2020-12-06] MEDS: benzonatate 100 mg Capsule 200 MG PO (09:20)
[2020-12-06 09:22] LABS: Rapid Strep A Test Negative (Negative)
[2020-12-06 10:00] VITALS: BP 117/70; PULSE 67; RESP 16; O2SAT 95
== END 2020-12-06 10:54 | disposition home or self-care (01) ==
PROVIDERS: Emergency Provider Emergency Medicine; PCP Physician Assistant
DX: R05.9 Cough, unspecified (principal); R51.9 Headache, unspecified
CPT/HCPCS: 71046; 87081; 87880; 99283

== ENCOUNTER 2021-02-13 15:43 | Emergency (ER) | payer MEDICAID, SELFPAY ==
[2021-02-13 16:07] VITALS: BP 116/66; PULSE 83; RESP 14; TEMP 36.5; O2SAT 96; BMI 36.6
[2021-02-13 16:57] LABS: HCG Qualitative Urine. Negative (Negative)
[2021-02-13 17:24] LABS: Urine Appearance Clear (CLEAR); Urine Color Yellow (Yellow)
[2021-02-13 17:25] LABS: Add Urine Culture? No; Add Urine Microscopic? YES; Bacteria Urine TRACE /hpf; Bilirubin Urine Neg (Negative); Blood Urine 2+ (Negative); Glucose Urine UA Norm (Normal); Ketones Urine Negative (Negative); Leukocyte Esterase Urine Negative (Negative); Mucus Urine 2+ /hpf; Nitrate Urine Negative (Negative); Protein Urine Neg (Negative); RBC Urine 0-4 /hpf (0-2); Urobilinogen Urine Norm (Negative); WBC Urine 0-4 /hpf (0-5); pH Urine 6.5 (5-7)
--- NOTE | 2021-02-13 19:10 | PC.NURSE ---
not in waiting room @ 0375
== END 2021-02-13 19:59 | disposition left against medical advice (07) ==
PROVIDERS: Nurse Practitioner Family; Emergency Provider Family Medicine; PCP Physician Assistant
DX: Z53.21 Procedure and treatment not carried out due to patient leaving prior to being seen by health care provider (principal)
CPT/HCPCS: 81001; 81025

== ENCOUNTER 2021-11-19 10:19 | Outpatient (CLI) | payer MEDICAID, SELFPAY ==
--- NOTE | 2021-11-19 10:51 | MM_ITS ---
WS: [id number] Bilateral screening 3D tomosynthesis digital mammogram, 11/19/2021 Clinical Data: SCREEN Comparison: 04/03/2020, 02/20/2019, 02/14/2018, 01/26/2017, 01/08/2016, 12/28/2015. Findings: The breast parenchymal pattern shows fibroglandular tissue. No spiculated masses or clustered calcifi cations are seen. There are no secondary signs of carcinoma. MM/[place] [id number] Impression: 1. Negative bilateral mammogram unchanged. 2. Recommend annual screening mammograms. BIRADS: 1-Negative FOLLOW UP: 1 Year Follow-up The CAD apple checker was used.
== END 2021-11-19 10:20 | disposition home or self-care (01) ==
LOC: RAD 10:20
PROVIDERS: PCP Physician Assistant; Visit Provider Physician Assistant
DX: Z12.31 Encounter for screening mammogram for malignant neoplasm of breast (principal)
CPT/HCPCS: 77063; 77067

== ENCOUNTER 2021-12-17 11:12 | Outpatient (CLI) | payer MEDICAID, SELFPAY ==
--- NOTE | 2021-12-17 11:45 | MR_ITS ---
WS: [id number] MRA HEAD TECHNIQUE: Axial 3-D TOF images obtained with axial images and axial, sagittal, and coronal 2-D refor matted images. CLINICAL INFORMATION: I67.1 - Cerebral aneurysm, nonruptured COMPARISON: MRA September 17, 2020 CTA 4 . CTA June 20, 2016 FINDINGS: Previously described tiny infundibulum at the RIGHT posterior communicating artery origin measuring 2 .3 mm is unchanged since the CTA 2016. Previously described potential LEFT supraclinoid aneurysm or i nfundibulum is again not seen today. This was previously described 2017. Additional tiny 2.9 mm infundibulum or aneurysm arising from the RIGHT distal cavernous carotid arter y near the ophthalmic artery origin is unchanged over multiple prior studies dating back to 2017. Additional tiny aneurysm or infundibulum RIGHT M2 segment anterior division measuring 3 mm. This is s table from previous and better visualized today due to higher quality images. Distal vertebral arteries are patent. Basilar artery is patent. Normal vascularity to the [employer] territo noemi bilaterally. Both ICAs are patent at the skull base. Normal vascularity to the JAZZY and MCA territories bilaterally . Patent anterior communicating artery. No evidence of flow-limiting stenosis. MR/MR angio head wo con [id number] IMPRESSION: Overall no significant changes compared to 2020. 1. Stable tiny infundibulum at the right posterior communicating artery origin measuring 2.3 mm is unchanged since 2017. 2. Additional tiny 2.9 mm infundibulum or aneurysm arising from the right dis arlene cavernous carotid artery near the ophthalmic artery origin is unchanged ove r multiple prior studies dating back to 2017. 3. Additional tiny aneurysm or infundibulum RIGHT M2 segment anterior division measuring 3 mm is better seen today but unchanged since 2020 4. No other visualized aneurysms. 5. No evidence of proximal flow-limiting stenosis.
== END 2021-12-17 11:13 | disposition home or self-care (01) ==
LOC: RAD 11:14
PROVIDERS: PCP Physician Assistant; Visit Provider Specialist
DX: I67.1 Cerebral aneurysm, nonruptured (principal)
CPT/HCPCS: 70544

== ENCOUNTER 2022-04-14 18:54 | Emergency (ER) | payer MEDICAID, SELFPAY ==
[2022-04-14 19:04] VITALS: BP 160/85; PULSE 92; RESP 16; TEMP 38.8; O2SAT 94
[2022-04-14 19:42] LABS: Rapid Strep A Test Positive (Negative)
[2022-04-14] MEDS: ibuprofen Oral Susp 100 mg/5mL UDC 400 MG PO (19:43)
[2022-04-14] MEDS: penicillin v potassium 250 mg Tablet 500 MG PO (20:50)
[2022-04-14 20:52] VITALS: PULSE 88; RESP 16; TEMP 37.8; O2SAT 99
--- NOTE | 2022-04-14 23:21 | ED_ITS ---
HPI - General Adult General: Chief complaint: Upper Respiratory Infection Stated complaint: Sore Throat\Fever\ Time Seen by Provider: 04/14/22 19:31 History of Present Illness: Patient is in today with sore throat. She states this started yesterday and has progressively worsened. She reports fever, chills, body aches. She denies any been ill in her household. Associated symptoms: Reports nausea; Deny chest pain, dyspnea, palpitations or vomiting Review of Systems Const: Reports: fever(s), chills and body aches ENMT: Reports: throat pain and nasal congestion Card: Denies: chest pain, palpitations or irregular heart rhythm Resp: Denies: dyspnea, productive cough or non-productive cough GI: Reports: nausea; Denies: abdominal pain or vomiting : Denies: flank pain, difficulty voiding or dysuria PFSH ED PFSH: Medical History Brain aneurysm Right ureteral stone Surgical History delivery delivered 3 C-SECTIONS Family History Mother Hypertension Father Hypertension Social History Alcohol intake: never Household members: children Marital status: Current occupational status: unemployed Physical Exam Const: COMMON NORMALS: no acute distress, patient oriented x3 and alert OTHER: Ill-appearing nontoxic HENMT: COMMON NORMALS: normocephalic, external ears normal, EAC's normal and TM's normal bilaterally HEAD & SCALP: normocephalic EXTERNAL EAR: Yes external ears normal EXTERNAL AUDITORY CANAL: EAC's normal TYMPANIC MEMBRANE: TM's normal bilaterally THROAT: uvula midline and posterior oropharynx abnormal erythema; no exudates Neck/C-Spine: COMMON NORMALS: no JVD Resp: COMMON NORMALS: normal respiratory effort, No use of accessory muscles and clear to auscultation bilaterally AUSCULTATION: clear to auscultation bilaterally Cardio: COMMON NORMALS: no JVD, regular rate, regular rhythm, S1 normal heart sound present, S2 normal heart sound present and No murmurs present (Cardio) RATE: regular rate RHYTHM: regular rhythm HEART SOUNDS: S1 normal heart s ound present and S2 normal heart sound present Neuro: COMMON NORMALS: patient oriented x3 SENSORIUM/ORIENTATION: Yes alert Course Vital Signs: Vital signs: Vital Signs Temperature 100.0 F H 04/14/22 20:52 Pulse Rate 88 04/14/22 20:52 Respiratory Rate 16 04/14/22 20:52 Blood Pressure 160/85 04/14/22 19:04 Pulse Oximetry 99 04/14/22 20:52 Oxygen Delivery Me thod 04/14/22 19:04 MDM - General Adult Medical Decision Making Patient is in today for sore throat, fever, chills. Rapid strep positive. We will treat patient to cover for strep pharyngitis with penicillin VK. First dose given here. Ibuprofen given x1 dose here for fever. Educated patient about possible benefits and side effects of medication provided. Advised her of conservative care for strep pharyngitis including warm salt water gargles, cold liquids to help with pain and swelling. Alternate Tylenol and Motrin to help with fever and pain. Take antibiotic to completion. Follow-up with primary care provider. Return to the ER as needed for new or worsening symptoms Lab Data Laboratory Results Group A Strep Rapid Positive (Negative) H 04/14/22 19:09 Discharge Plan Discharge Patient Disposition: Home Clinical Impression: Pharyngitis, streptococcal Condition: Stable Prescriptions: New penicillin V potassium 500 mg tablet 500 mg PO BID 10 Days Qty: 20 0RF No Action minocycline 100 mg capsule 100 mg PO DAILY nystatin 100,000 unit/mL suspension 6 ml PO QID 7 Days Qty: 200 0RF Rx Instructions: swish and swallow topiramate [Topamax] 100 mg tablet 100 mg PO ONCE 90 Days Qty: 90 3RF albuterol sulfate [ProAir HFA] 90 mcg/actuation HFA aerosol inhaler 2 puff INHALATION 6XD PRN (Reason: shortness of breath or wheezing) Qty: 18 2RF budesonide-formoterol [Symbicort] 80-4.5 mcg/actuation HFA aerosol inhaler 2 puff INHALATION BID 30 Days Qty: 10.2 1RF Rx Instructions: patient will need to setup with a new provider for refills varenicline 1 mg tablet See Rx Instructions .ROUTE .COMPLEX Qty: 180 0RF Dose Instruction: TAKE; 1/2 TABLET IN AM FOR 7 DAYS THEN 1 IN AM, 1 AT 4PM. TAKE WITH FOOD/ NEVER AFTER 5PM Rx Instructions: TAKE; 1/2 TABLET IN AM FOR 7 DAYS THEN 1 IN AM, 1 AT 4PM. TAKE WITH FOOD/ NEVER AFTER 5PM Tessalon Perles 100 mg capsule 100 mg PO BID PRN (Reason: cough) Qty: 10 0RF Symbicort 80-4.5 mcg/actuation Hfa Aerosol Inhaler See Rx Instructions .ROUTE .COMPLEX Rx Instructions: ... Discharge Orders: Discharge ED (Routine); Ordered 04/14/22 Ordered By: Carlotta Vizcarra Referrals: Betty Smith PA [Primary Care Provider] - Discharge Diet: Usual diet Discharge Activity: Increase activity as tolerated Patient Instructions: Strep Throat (ED) Activity Restrictions/Additional Instructions: Take antibiotics as directed starting tomorrow. Make sure that you are staying well-hydrated. Alternate Tylenol and Motrin to help with fever and pain. Wait 2 days and then change her toothbrush. Follow-up with primary care provider as needed. Return to the ER for new or worsening symptoms Stand Alone Forms: Work/School Release Coding Level of Care Code ED [employer] Business Analyst for Nataly Wolf
== END 2022-04-14 20:53 | disposition home or self-care (01) ==
PROVIDERS: Emergency Medicine; Emergency Provider Nurse Practitioner Family; PCP Physician Assistant
DX: J02.0 Streptococcal pharyngitis (principal)
CPT/HCPCS: 87880; 99283

== ENCOUNTER 2022-05-26 08:12 | Emergency (ER) | payer MEDICAID, SELFPAY ==
[2022-05-26] VITALS (12 sets, daily range): BP systolic 116–155; BP diastolic 76–97; PULSE 60–78; RESP 13–20; TEMP 36.6; O2SAT 96–100; BMI 29.9
--- NOTE | 2022-05-26 08:16 | XRR_ITS ---
PROCEDURE INFORMATION: Exam: XR Chest Exam date and time: 05/26/2022 8:45 AM Age: 47 years old Clinical indication: Pain; Angina pectoris; Additional info: Chest pain TECHNIQUE: Imaging protocol: Radiologic exam of the chest. Views: 1 view. COMPARISON: CR XR chest 2V* [id number] 12/06/2020 8:17 AM FINDINGS: Lungs: Unremarkable. No consolidation. Pleural spaces: Unremarkable. No pleural effusion. No pneumothorax. Heart/Mediastinum: Unremarkable. No cardiomegaly. Bones/joints: Unremarkable. XR/XR chest 1V portable [id number] IMPRESSION: No acute findings.
--- NOTE | 2022-05-26 08:16 | ECG_ITS ---
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 Measurements Intervals [place] Rate: 71 P: 59 CO: 136 QRS: 58 QRSD: 102 T: 46 QT: 405 QTc: 440 Interpretive Statements SINUS RHYTHM Compared to ECG 04/17/2018 18:52:00 ST (T wave) deviation no longer present Electronically Signed On 05-27-2022 1:32:17 CDT by Dhruv Ibarra M.D. [id number]
--- NOTE | 2022-05-26 08:22 | W.ED.CHESTPA ---
HPI - Chest Pain General: Chief Complaint: Chest Pain Stated Complaint: chest pain yest/states high bp Time Seen by Provider: 05/26/22 08:14 Source: patient Mode of arrival: ambulatory History of Present Illness: 47-year-old female presents emergency room complaining of chest pain. Began yesterday morning. She has been mildly short of breath and nauseous pain is in the center of the chest does not radiate into the neck arms or back. She is also noticed an elevated blood pressure at home. Seems to progressively worsen. She has not noticed anything that aggravates or relieves. Complains of a pressure-like tightness sensation. MD complaint: chest pain Onset (ago): day(s) (1) Timing of current episode: episodic Onset: during rest Pain location: left chest Pain radiation: none Severity: moderate Quality: tightness, aching and heaviness Relieving factors: nothing Exacerbating factors: nothing Associated symptoms: Deny abdominal pain, diaphoresis, dyspnea, fever(s), leg edema, nausea, palpitations, sense of impending doom, syncope or vomiting Treatment prior to arrival: none Review of Systems Const: Denies: fever(s), chills, fatigue, malaise or diaphoresis ENMT: Denies: throat pain, ear or mastoid pain, nasal discharge or nasal congestion Card: Denies: chest pain, palpitations, irregular heart rhythm, edema or syncope Resp: Denies: dyspnea, productive cough, non-productive cough or wheezing GI: Denies: abdominal pain, nausea or vomiting : Denies: flank pain, difficulty voiding, dysuria, urinary frequency or urinary urgency Skin/Breast: Denies: rash or pruritus [facility] ED PFSH: Medical History (Updated 05/26/22 @ 13:04 by Rhys Stockton DO) Brain aneurysm Right ureteral stone Surgical History delivery delivered 3 C-SECTIONS Family History Mother Hypertension Father Hypertension Social History Alcohol intake: never Substance/Drug Use: never Household members: children Marital status: Current occupational status: unemployed Physical Exam Const: GENERAL APPEARANCE: cooperative and comfortable ORIENTATION/CONSCIOUSNESS: Yes awake, Yes oriented to person, Yes oriented to place and Yes oriented to time HENMT: COMMON NORMALS: normocephalic, atraumatic and hearing grossly normal bilaterally HEAD & SCALP: normocephalic and atraumatic Resp: COMMON NORMALS: normal respiratory effort, No retractions, No use of accessory muscles and clear to auscultation bilaterally AUSCULTATION: clear to auscultation bilaterally Cardio: COMMON NORMALS: regular rate, regular rhythm and No murmurs present (Cardio) RATE: regular rate RHYTHM: regular rhythm GI: COMMON NORMALS: Soft to palpation and No hepatosplenomegaly present AUSCULTATION: Yes normoactive bowel sounds PALPATION: Yes Soft to palpation, No Tenderness to palpation present (GI), No Guarding due to palpation present (GI) and Yes No hepatosplenomegaly present Extremity: COMMON NORMALS: normal to inspection, capillary refill normal, no clubbing, cyanosis or edema, no calf tenderness and no pedal edema Neuro: SENSORIUM/ORIENTATION: Yes oriented to person, Yes oriented to place and Yes oriented to time Skin: COMMON NORMALS: no rashes or lesions noted GENERAL SKIN EXAM: no rashes or lesions noted Course Vital Signs: Vital signs: Vital Signs Temperature 97.9 F 05/26/22 08:18 Pulse Rate 62 05/26/22 11:53 Respiratory Rate 18 05/26/22 11:53 Blood Pressure 121/79 05/26/22 11:53 Pulse Oximetry 100 05/26/22 11:53 Oxygen Delivery Me thod Room Air 05/26/22 08:36 MDM - Chest Pain Medical Decision Making Cardiac enzymes and EKG are unremarkable. Patient improved with a GI cocktail. Will discharge home on pantoprazole and have her follow-up with her primary care doctor. Her liver enzymes were slightly elevated she may have some degree of biliary colic we will set her up for an outpatient gallbladder ultrasound. She should follow-up on this with her primary care doctor as well. Return if she has further problems. Medical Records I reviewed the patient's medical records. Lab Data I reviewed the patient's lab results. 05/26/22 08:28 05/26/22 08:28 Radiology Impressions Chest X-Ray 05/26/22 08:16 IMPRESSION: No acute findings. Laboratory Results WBC 7.6 10^3/uL (4.0-10.0) 05/26/22 08: RBC 5.09 10^6/uL (4.1-5.3) 05/26/22 08: Hgb 14.1 g/dL (11.5-15.3) 05/26/22 08: Hct 44.0 % (37.0-47.0) 05/26/22 08: MCV 86.4 fl (81-99) 05/26/22 08: MCH 27.7 pg (28.0-34.0) L 05/26/22 08: MCHC 32.0 g/dL (30.0-36.0) 05/26/22 08: RDW 13.1 % (12.1-15.1) 05/26/22 08: Plt Count 245 10^3/cmm (130-400) 05/26/22 08: MPV 9.5 fL (7.4-10.4) 05/26/22 08: Neut % (Auto) 63.8 % 05/26/22 08: Lymph % (Auto) 28.5 % 05/26/22 08: [place] % (Auto) 5.1 % 05/26/22 08: Eos % (Auto) 2.2 % 05/26/22 08: Baso % (Auto) 0.3 % 05/26/22 08: Neut # (Auto) 4.86 10^3/uL (1.8-7.7) 05/26/22 08: Lymph # (Auto) 2.2 10^3/uL (0.8-4.8) 05/26/22 08:28 [place] # (Auto) 0.4 10^3/uL (0.2-0.9) 05/26/22 08: Eos # (Auto) 0.2 10^3/uL (0.0-0.8) 05/26/22 08: Baso # (Auto) 0.0 10^3/uL (0.0-0.1) 05/26/22 08: Nucleated RBC % (auto) 0 % 05/26/22 08: Nucleated RBCs # 0.0 /100WBC 05/26/22 08:28 Sodium 140 mmol/L (136-145) 05/26/22 08:28 Potassium 3.9 mmol/L (3.5-5.1) 05/26/22 08:28 Chloride 102 mmol/L (98-107) 05/26/22 08:28 Carbon Dioxide 26 mmol/L (22-29) 05/26/22 08:28 Anion Gap 15.9 (5-19) 05/26/22 08:28 BUN 10 mg/dL (6-20) 05/26/22 08:28 Creatinine 0.6 mg/dL (0.5-0.9) 05/26/22 08:28 GFR Calculation 107.6 mL/min (90-130) 05/26/22 08:28 Glucose 98 mg/dL (65-115) 05/26/22 08:28 Calculated Osmolality 289 mOsm/kg (285-295) 05/26/22 08:28 Calcium 9.2 mg/dL (8.5-10.5) 05/26/22 08:28 Total Bilirubin 0.4 mg/dL (0.15-1.2) 05/26/22 08:28 AST 29 U/L (0-32) 05/26/22 08:28 ALT 36 U/L (0-33) H 05/26/22 08:28 Alkaline Phosphatase 131 U/L (35-105) H 05/26/22 08:28 Troponin T Baseline 6 ng/L (0-10) 05/26/22 08:28 Troponin T 120 Minute 6.00 ng/L (0-10) 05/26/22 10:24 Delta Troponin T 0 ABS# (0-10) 05/26/22 10:24 Total Protein 7.5 g/dL (6.6-8.7) 05/26/22 08:28 Albumin 4.3 g/dL (3.5-5.2) 05/26/22 08:28 Globulin 3.2 g/dL (1.3-4.6) 05/26/22 08:28 Discharge Plan Discharge Patient Disposition: Home Clinical Impression: Atypical chest pain, Gastroesophageal reflux disease, Elevated liver enzymes Condition: Stable Prescriptions: New pantoprazole 40 mg tablet,delayed release (DR/EC) 40 mg PO DAILY Qty: 30 0RF No Action minocycline 100 mg capsule 100 mg PO DAILY nystatin 100,000 unit/mL suspension 6 ml PO QID 7 Days Qty: 200 0RF Rx Instructions: swish and swallow topiramate [Topamax] 100 mg tablet 100 mg PO ONCE 90 Days Qty: 90 3RF albuterol sulfate [ProAir HFA] 90 mcg/actuation HFA aerosol inhaler 2 puff INHALATION 6XD PRN (Reason: shortness of breath or wheezing) Qty: 18 2RF budesonide-formoterol [Symbicort] 80-4.5 mcg/actuation HFA aerosol inhaler 2 puff INHALATION BID 30 Days Qty: 10.2 1RF Rx Instructions: patient will need to setup with a new provider for refills varenicline 1 mg tablet See Rx Instructions .ROUTE .COMPLEX Qty: 180 0RF Dose Instruction: TAKE; 1/2 TABLET IN AM FOR 7 DAYS THEN 1 IN AM, 1 AT 4PM. TAKE WITH FOOD/ NEVER AFTER 5PM Rx Instructions: TAKE; 1/2 TABLET IN AM FOR 7 DAYS THEN 1 IN AM, 1 AT 4PM. TAKE WITH FOOD/ NEVER AFTER 5PM Tessalon Perles 100 mg capsule 100 mg PO BID PRN (Reason: cough) Qty: 10 0RF Symbicort 80-4.5 mcg/actuation Hfa Aerosol Inhaler See Rx Instructions .ROUTE .COMPLEX Rx Instructions: ... Discharge Orders: Discharge ED (Routine); Ordered 05/26/22 Ordered By: Rhys Stockton Referrals: Betty Smith PA [Primary Care Provider] - Patient Instructions: Opioid Safety, Pain Management Activity Restrictions/Additional Instructions: You are seen today for chest pain. Your cardiac enzymes and EKG were normal. Your chest pain was more suspicious for GI source. We will start you on pantoprazole 40 mg once daily. In addition to this your liver enzymes were slightly elevated we will have case management make arrangements for an outpatient ultrasound of the gallbladder. Coding Level of Care Code ED Client Server Developer for Nataly Wolf
[2022-05-26 08:38] LABS: Basophils % 0.3 %; Eosinophils # 0.2 10^3/uL (0.0-0.8); Eosinophils % 2.2 %; Hemoglobin 14.1 g/dL (11.5-15.3); Lymphocytes # 2.2 10^3/uL (0.8-4.8); Lymphocytes % 28.5 %; Mean Corpuscular Hemoglobin 27.7 pg (28.0-34.0); Mean Corpuscular Volume 86.4 fl (81-99); Mean Platelet Volume 9.5 fL (7.4-10.4); Monocytes # 0.4 10^3/uL (0.2-0.9); Monocytes % 5.1 %; Neutrophils # 4.86 10^3/uL (1.8-7.7); Neutrophils % 63.8 %; Nucleated Red Blood Cells % 0 %; Platelet Count 245 10^3/cmm (130-400); Red Blood Count 5.09 10^6/uL (4.1-5.3); Red Cell Distribution Width 13.1 % (12.1-15.1); White Blood Count 7.6 10^3/uL (4.0-10.0)
[2022-05-26 08:55] LABS: Alanine Aminotransferase 36 U/L (0-33); Albumin Level 4.3 g/dL (3.5-5.2); Alkaline Phosphatase 131 U/L (35-105); Anion Gap 15.9 (5-19); Aspartate Amino Transferase 29 U/L (0-32); Blood Urea Nitrogen 10 mg/dL (6-20); Calcium 9.2 mg/dL (8.5-10.5); Carbon Dioxide 26 mmol/L (22-29); Chloride 102 mmol/L (98-107); Globulin 3.2 g/dL (1.3-4.6); Glomerular Filtration Rate 107.6 mL/min (90-130); Glucose 98 mg/dL (65-115); Osmolality Calculated 289 mOsm/kg (285-295); Potassium 3.9 mmol/L (3.5-5.1); Sodium 140 mmol/L (136-145); Total Bilirubin 0.4 mg/dL (0.15-1.2); Total Protein 7.5 g/dL (6.6-8.7); Troponin(5th) Baseline 6 ng/L (0-10)
[2022-05-26 11:05] LABS: Troponin 5 2HR Delta 0 ABS# (0-10)
[2022-05-26] MEDS: lidocaine 2% viscous 15 ML, aluminum-mag hydrox-simethicon 30 ML, sucralfate oral liq 1 GM PO (11:18)
--- NOTE | 2022-05-27 09:51 | DCPLANNER ---
Addendum entered by Mary Rose 06/09/22 08:32: Patient had an outpatient US gallbladder scheduled - patient did attend appointment. Addendum entered by Mary Rose 06/03/22 10:09: Patient has an outpatient US gallbladder scheduled for Thursday, June 09, 2022 at 6:15. Original Note: animal rides manager had message to schedule an outpatient ultrasound of gallbladder. animal rides manager faxed signed order to centralized scheduling, who will call patient with appointment information.
== END 2022-05-26 11:55 | disposition home or self-care (01) ==
PROVIDERS: Physician Assistant; Emergency Provider Family Medicine; PCP Physician Assistant
DX: R07.89 Other chest pain (principal); K21.9 Gastro-esophageal reflux disease without esophagitis; R74.8 Abnormal levels of other serum enzymes
CPT/HCPCS: 71045; 80053; 84484; 85025; 93005; 99285

== ENCOUNTER 2022-06-09 05:52 | Outpatient (CLI) | payer MEDICAID, SELFPAY ==
--- NOTE | 2022-06-09 | US_ITS ---
WS: [id number] Gallbladder and right upper quadrant ultrasound, 06/09/2022 Clinical Data: ABNORMAL LABS Comparison: Abdominal ultrasound, 05/20/2010. Findings: The gallbladder shows a small sludge ball or mobile gallstone.. The wall measures 0.2 cm with no penelope cholecystic fluid. The common bile duct is 0.3 cm and there are no intrahepatic ductal abnormalities. Liver shows no cysts, masses or dilated intrahepatic ducts. The liver measures 20.16 cm with increased echotexture. The portal vein shows normal flow. The pancreas is obscured by overlying bowel gas but no cyst, pseudocyst, or evidence of pancreatitis is noted. Right kidney measures 12.5 cm and no cyst, masses or hydronephrosis can be seen. The aorta and inferior vena cava show no vascular abnormalities. US/US gall bladder [id number] Impression: 1. Small sludge ball or mobile gallstone. 2. Hepatomegaly with increased echotexture.
== END 2022-06-09 05:53 | disposition home or self-care (01) ==
LOC: RAD 05:55
PROVIDERS: PCP Physician Assistant; Visit Provider Family Medicine
DX: R74.8 Abnormal levels of other serum enzymes (principal); R16.0 Hepatomegaly, not elsewhere classified
CPT/HCPCS: 76705

== ENCOUNTER 2023-01-03 12:55 | Outpatient (CLI) | payer BC, MEDICAID, SELFPAY ==
--- NOTE | 2023-01-03 13:03 | MM_ITS ---
WS: [id number] BILATERAL 3D TOMOSYNTHESIS DIGITAL SCREENING MAMMOGRAPHY WITH CAD CLINICAL INFORMATION: SCREENING HISTORY: Screening mammogram. No current complaints. COMPARISON: 2021 TECHNIQUE: Bilateral CC and MLO views. FINDINGS: Scattered fibroglandular densities bilaterally. No suspicious focal mass, asymmetry, calcifications, or architectural distortion. No evidence of malignancy. Incidental punctate calcification LEFT breast . Incidental intramammary lymph nodes. IMPRESSION: MM/[place] [id number] BI-RADS: 2-Benign FOLLOW UP: 1 Year Follow-up Recommend return to annual screening mammography.
== END 2023-01-03 12:56 | disposition home or self-care (01) ==
LOC: MOBLMAM 13:01
PROVIDERS: PCP Physician Assistant; Visit Provider Physician Assistant
DX: Z12.31 Encounter for screening mammogram for malignant neoplasm of breast (principal)
CPT/HCPCS: 77063; 77067

== ENCOUNTER 2023-07-11 19:27 | Emergency (ER) | payer BC, MEDICAID, SELFPAY ==
--- NOTE | 2023-07-11 19:31 | XRR_ITS ---
PROCEDURE INFORMATION: Exam: XR Chest Exam date and time: 07/11/2023 8:09 PM Age: 48 years old Clinical indication: Pain; Chest pressure; Additional info: Cp TECHNIQUE: Imaging protocol: Radiologic exam of the chest. Views: 1 view. COMPARISON: CR XR chest 1V portable [id number] 05/26/2022 8:45 AM FINDINGS: Lungs: Unremarkable. No consolidation. Pleural spaces: Unremarkable. No pleural effusion. No pneumothorax. Heart/Mediastinum: Unremarkable. No cardiomegaly. Bones/joints: Unremarkable. XR/XR chest 1V portable [id number] IMPRESSION: No acute findings.
--- NOTE | 2023-07-11 19:31 | ECG_ITS ---
[facility] Test Date: 2023-07-11 Pat Name: Rosalina Summers Department: Room: Gender: Female Magnetic Locater: : 1975 Requested By: Nata Dawson Order Number: [id number] Yolis MD: Konrad Reyes M.D. Measurements Intervals [place] Rate: 61 P: 53 LA: 129 QRS: 71 QRSD: 103 T: 58 QT: 418 QTc: 421 Interpretive Statements SINUS RHYTHM Compared to ECG 05/26/2022 08:22:06 No significant changes Electronically Signed On 07-12-2023 18:16:18 CDT by Konrad Reyes M.D. [id number] f
[2023-07-11 19:32] VITALS: BP 125/75; PULSE 62; RESP 14; TEMP 36.6; O2SAT 98
--- NOTE | 2023-07-11 19:46 | ED_ITS ---
HPI - Chest Pain 2 General: Chief Complaint: Chest Pain Stated Complaint: Dizziness, CP, Time Seen by Provider: 07/11/23 19:33 History of Present Illness: 48-year-old female with a history of [employer]ER D and tobacco dependence with cessation about 13 days ago who presents emergency room with chest pain. She says she had a dull pain in her lateral left lower chest. This started right after she had stood up to go to the bathroom. She felt dizzy and had chest pain. It lasted briefly and went away. Then it happened again. She checked her blood pressure which was normal but her heart rate was a little slower than usual in the upper 50s. She felt like she needed to come and get checked out to make sure thing was okay. She has had some cough and congestion recently. No shortness of breath. No abdominal pain. No nausea or vomiting. No diaphoresis. No altered mental status. No focal motor deficits. No headache. Review of Systems 2 Narrative: Constitutional symptoms: Negative except as documented in HPI. Skin symptoms: Negative except as documented in HPI. Eye symptoms: Negative except as documented in HPI. ENMT symptoms: Negative except as documented in HPI. Respiratory symptoms: Negative except as documented in HPI. Cardiovascular symptoms: Negative except as documented in HPI. Gastrointestinal symptoms: Negative except as documented in HPI. Genitourinary symptoms: Negative except as documented in HPI. Musculoskeletal symptoms: Negative except as documented in HPI. Neurologic symptoms: Negative except as documented in HPI. Psychiatric symptoms: Negative except as documented in HPI. Endocrine symptoms: Negative except as documented in HPI. [facility] ED 2 PFS: Medical History (Updated 07/11/23 @ 21:01 by Vanessa Reardon MD) Brain aneurysm Right ureteral stone Surgical History delivery delivered 3 C-SECTIONS Family History Mother Hypertension Father Hypertension Social History Alcohol intake: never Substance/Drug Use: never Household members: children Marital status: Current occupational status: unemployed Physical Exam 2 Narrative: EXAM NARRATIVE: General: Alert, no acute distress. Skin: Warm, dry. Head: Normocephalic, atraumatic. Neck: Supple, trachea midline. Eye: Extraocular movements are intact. Ears, nose, mouth and throat: mucosa moist. Cardiovascular: Regular, Normal peripheral perfusion. Respiratory: Lungs are clear to auscultation, respirations are non-labored, breath sounds are equal, Symmetrical chest wall expansion. Gastrointestinal: Soft, Nontender, Non distended, Normal bowel sounds. Musculoskeletal: Normal ROM, no deformity. Neurological: Alert and oriented, No focal neurological deficit observed. Psychiatric: Cooperative, appropriate mood & affect. Course 2 Vital Signs: Vital signs: Vital Signs Temperature 98 F 07/11/23 19:32 Pulse Rate 58 L 07/11/23 20:30 Respiratory Rate 14 07/11/23 20:30 Blood Pressure 103/69 07/11/23 20:30 Pulse Oximetry 97 07/11/23 20:30 Oxygen Delivery Me thod Room Air 07/11/23 19:32 MDM - Chest Pain Medical Decision Making Differential diagnosis for patient with chest pain includes but is not limited to and based on the above HPI, review of systems and physical exam: Pneumonia. unstable angina. angina. Acute coronary syndrome / [place]. Pulmonary embolism. Costochondritis / musculoskeletal. Pleurisy. Pericarditis. Esophageal spasm. Pancreatis. Cholecystitis. Workup: Lab work, chest X-ray and EKG ordered to evaluate, rule in and rule out above pathologies. EKG: Time 1925. Rate 61. Normal sinus rhythm, No ST-T changes, no ectopy, normal [place] & QRS intervals, This was reviewed and interpreted by myself the ER physician at 1927 Chest x-ray: No acute process. No infiltrate. No pneumothorax. No cardiomegaly. This was reviewed and interpreted by myself the ER physician. Lab Review: Laboratory results were reviewed and interpreted by myself the emergency room physician. White count is 6. Hemoglobin is 13.5. BUN and creatinine are 7 and 0.9. Troponin is negative. Glucose is normal. I reviewed the patient's medical record. Prolonged emergency room stay: Stay over 2 hours secondary to trending a second troponin with chest pain to rule out acute coronary syndrome Reexamination: Patient remained stable. No increased work of breathing. No altered mental status. No focal motor deficits. Assessment and plan: Chest pain, noncardiac - Discharged home - Discussed findings and plan with patient. Answered any questions. - All laboratory values were reviewed and interpreted personally by myself, the ER physician - All imaging was reviewed and interpreted personally by myself, the ER physician. - Evaluation and treatment of this problem were appropriate in the emergency setting Lab Data 07/11/23 19:50 07/11/23 19:50 Radiology Impressions Chest X-Ray 07/11/23 19:31 IMPRESSION: No acute findings. Laboratory Results WBC 6.35 10^3/uL (3.29-11.43) 07/11/23 19:50 RBC 4.72 10^6/uL (3.85-5.65) 07/11/23 19:50 Hgb 13.50 g/dL (11.27-16.99) 07/11/23 19:50 Hct 41.1 % (36-47) 07/11/23 19:50 MCV 87.1 fl (85-98) 07/11/23 19:50 MCH 28.6 pg (27-33) 07/11/23 19:50 MCHC 32.8 g/dL (30-55) 07/11/23 19:50 RDW 13.1 % (12.1-15.1) 07/11/23 19:50 Plt Count 217 10^3/cmm (157-399) 07/11/23 19:50 MPV 9.2 fL (7.4-10.4) 07/11/23 19:50 Neut % (Auto) 55.8 % 07/11/23 19:50 Lymph % (Auto) 32.4 % 07/11/23 19:50 [place] % (Auto) 8.0 % 07/11/23 19:50 Eos % (Auto) 3.1 % 07/11/23 19:50 Baso % (Auto) 0.5 % 07/11/23 19:50 Neut # (Auto) 3.54 10^3/uL (1.8-7.7) 07/11/23 19:50 Lymph # (Auto) 2.1 10^3/uL (0.8-4.8) 07/11/23 19:50 [place] # (Auto) 0.5 10^3/uL (0.2-0.9) 07/11/23 19:50 Eos # (Auto) 0.2 10^3/uL (0.0-0.8) 07/11/23 19:50 Baso # (Auto) 0.0 10^3/uL (0.0-0.1) 07/11/23 19:50 Nucleated RBC % (auto) 0 % 07/11/23 19:50 Nucleated RBCs # 0.0 /100WBC 07/11/23 19:50 Sodium 140 mmol/L (136-145) 07/11/23 19:50 Potassium 3.6 mmol/L (3.5-5.1) 07/11/23 19:50 Chloride 106 mmol/L (98-107) 07/11/23 19:50 Carbon Dioxide 25 mmol/L (22-29) 07/11/23 19:50 Anion Gap 12.6 (5-19) 07/11/23 19:50 BUN 7 mg/dL (6-20) 07/11/23 19:50 Creatinine 0.9 mg/dL (0.5-0.9) 07/11/23 19:50 GFR Calculation 67.1 mL/min (90-130) L 07/11/23 19:50 Glucose 114 mg/dL (65-115) 07/11/23 19:50 Calculated Osmolality 289 mOsm/kg (285-295) 07/11/23 19:50 Calcium 8.1 mg/dL (8.5-10.5) L 07/11/23 19:50 Total Bilirubin 0.2 mg/dL (0.15-1.2) 07/11/23 19:50 AST 18 U/L (0-32) 07/11/23 19:50 ALT 23 U/L (0-33) 07/11/23 19:50 Alkaline Phosphatase 110 U/L (35-105) H 07/11/23 19:50 Troponin T Baseline < 6 ng/L (0-10) 07/11/23 19:50 Total Protein 7.4 g/dL (6.6-8.7) 07/11/23 19:50 Albumin 4.4 g/dL (3.5-5.2) 07/11/23 19:50 Globulin 3.0 g/dL (1.3-4.6) 07/11/23 19:50 All radiology interpretation(s) finalized by discharge Discharge Plan Discharge Patient Disposition: Home Clinical Impression: Non-cardiac chest pain Condition: Stable Prescriptions: No Action minocycline 100 mg capsule 100 mg PO DAILY nystatin 100,000 unit/mL suspension 6 ml PO QID 7 Days Qty: 200 0RF Rx Instructions: swish and swallow topiramate [Topamax] 100 mg tablet 100 mg PO ONCE 90 Days Qty: 90 3RF albuterol sulfate [ProAir HFA] 90 mcg/actuation HFA aerosol inhaler 2 puff INHALATION 6XD PRN (Reason: shortness of breath or wheezing) Qty: 18 2RF budesonide-formoterol [Symbicort] 80-4.5 mcg/actuation HFA aerosol inhaler 2 puff INHALATION BID 30 Days Qty: 10.2 1RF Rx Instructions: patient will need to setup with a new provider for refills varenicline 1 mg tablet See Rx Instructions .ROUTE .COMPLEX Qty: 180 0RF Dose Instruction: TAKE; 1/2 TABLET IN AM FOR 7 DAYS THEN 1 IN AM, 1 AT 4PM. TAKE WITH FOOD/ NEVER AFTER 5PM Rx Instructions: TAKE; 1/2 TABLET IN AM FOR 7 DAYS THEN 1 IN AM, 1 AT 4PM. TAKE WITH FOOD/ NEVER AFTER 5PM Tessalon Perles 100 mg capsule 100 mg PO BID PRN (Reason: cough) Qty: 10 0RF Symbicort 80-4.5 mcg/actuation Hfa Aerosol Inhaler See Rx Instructions .ROUTE .COMPLEX Rx Instructions: ... pantoprazole 40 mg tablet,delayed release (DR/EC) 40 mg PO DAILY Qty: 30 0RF Discharge Orders: Discharge ED (Routine); Ordered 07/11/23 Ordered By: Vanessa Reardon Referrals: Betty Smith PA [Primary Care Provider] - Discharge Diet: Usual diet Discharge Activity: Resume usual activity Patient Instructions: Noncardiac Chest Pain (ED) Activity Restrictions/Additional Instructions: Thank you for choosing [facility] for your healthcare needs today. Please realize this is an emergency room and that we are providing you with a medical screening exam and this may not be complete and all inclusive of all the testing and or work up that you may need to determine your ailment or severity of your illness. You have been screened and evaluated and felt safe for discharge. Health conditions do change or evolve sometimes and as such it is important that you follow up with your Primary Doctor to be re checked, 3-5 days is a general good time frame for follow up. You are always welcome to return to the ED for re assessment if your symptoms are worsening or you have new concerns Coding Level of Care Code ED Electronic Calibration Technician for Nataly Wolf
[2023-07-11 19:53] VITALS: BP 123/75; PULSE 61; RESP 16; O2SAT 98
[2023-07-11 19:57] LABS: Basophils % 0.5 %; Eosinophils # 0.2 10^3/uL (0.0-0.8); Eosinophils % 3.1 %; Hematocrit 41.1 % (36-47); Lymphocytes # 2.1 10^3/uL (0.8-4.8); Lymphocytes % 32.4 %; Mean Corpuscular HGB Conc 32.8 g/dL (30-55); Mean Corpuscular Hemoglobin 28.6 pg (27-33); Mean Corpuscular Volume 87.1 fl (85-98); Mean Platelet Volume 9.2 fL (7.4-10.4); Monocytes # 0.5 10^3/uL (0.2-0.9); Neutrophils # 3.54 10^3/uL (1.8-7.7); Neutrophils % 55.8 %; Nucleated Red Blood Cells % 0 %; Platelet Count 217 10^3/cmm (157-399); Red Blood Count 4.72 10^6/uL (3.85-5.65); Red Cell Distribution Width 13.1 % (12.1-15.1); White Blood Count 6.35 10^3/uL (3.29-11.43)
[2023-07-11 20:00] VITALS: BP 113/66; PULSE 58; RESP 16; O2SAT 97
[2023-07-11 20:25] LABS: Alanine Aminotransferase 23 U/L (0-33); Albumin Level 4.4 g/dL (3.5-5.2); Alkaline Phosphatase 110 U/L (35-105); Anion Gap 12.6 (5-19); Aspartate Amino Transferase 18 U/L (0-32); Blood Urea Nitrogen 7 mg/dL (6-20); Calcium 8.1 mg/dL (8.5-10.5); Carbon Dioxide 25 mmol/L (22-29); Chloride 106 mmol/L (98-107); Creatinine Clr Calc Pharmacy 77.0879; Glomerular Filtration Rate 67.1 mL/min (90-130); Glucose 114 mg/dL (65-115); Osmolality Calculated 289 mOsm/kg (285-295); Potassium 3.6 mmol/L (3.5-5.1); Sodium 140 mmol/L (136-145); Total Bilirubin 0.2 mg/dL (0.15-1.2); Total Protein 7.4 g/dL (6.6-8.7)
[2023-07-11 20:26] LABS: Troponin(5th) Baseline < 6 ng/L (0-10)
[2023-07-11 20:30] VITALS: BP 103/69; PULSE 58; RESP 14; O2SAT 97
== END 2023-07-11 21:30 | disposition home or self-care (01) ==
PROVIDERS: Emergency Medicine; Emergency Provider Emergency Medicine; PCP Physician Assistant
DX: R07.89 Other chest pain (principal); J44.9 Chronic obstructive pulmonary disease, unspecified
CPT/HCPCS: 36415; 71045; 80053; 84484; 85025; 93005; 99285

== ENCOUNTER 2024-01-23 15:07 | Emergency (ER) | payer MEDICAID, SELFPAY ==
[2024-01-23 15:11] VITALS: BP 142/70; PULSE 78; RESP 16; TEMP 36.7; O2SAT 98; BMI 31.8
--- NOTE | 2024-01-23 15:28 | W.ED.FALL ---
HPI - Fall General: Chief Complaint: Fall Stated Complaint: fALL Time Seen by Provider: 01/23/24 15:19 Source: patient Mode of arrival: ambulatory Limitations: no limitations History of Present Illness: Patient is a 48-year-old female presents to ED today along with her significant other for evaluation following a fall. Patient states she was carrying a laundry basket full of close when she accidentally fell after tripping. She states she has multiple areas of soreness but her main complaint is her left great toe that she states is swollen and bruised. She is ambulatory here without limp. She has no other complaints at this time. She denies striking her head or LOC. No neck or back pain. MD complaint: fall Onset (ago): hour(s) Fall from: standing Fall witnessed: no Place fall occurred: home Loss of consciousness: None Prolonged down time: no Symptoms prior to fall: none Context: tripped/slipped Location of injury - extremities: Left: foot Severity: moderate Associated symptoms-after fall: Denies abdominal pain, chest pain, headache(s), hematuria, lightheadedness or neck pain Related Data Home Medications Medication Instructions Recorded Confirmed budesonide-formoterol HFA 80 See Rx Instructions .Route .COMPLEX 03/02/19 06/14/22 mcg-4.5 mcg/actuation aerosol inhaler (Symbicort) minocycline 100 mg capsule 100 mg PO DAILY 06/28/20 06/14/22 Previous Rx's Medication Instructions Recorded albuterol sulfate 90 mcg/actuation 2 puff inhalation 6XD PRN 05/06/19 aerosol inhaler (ProAir HFA) shortness of breath or wheezing #18 grams budesonide-formoterol HFA 80 2 puff inhalation BID 30 days 07/15/19 mcg-4.5 mcg/actuation aerosol #10.2 grams inhaler (Symbicort) benzonatate 100 mg capsule 100 mg PO BID PRN cough #10 caps 12/06/20 (Barak Ramos) nystatin 100,000 unit/mL oral 6 ml PO QID 7 days #200 mL 11/07/21 suspension topiramate 100 mg tablet (Topamax) 100 mg PO ONCE 90 days #90 tabs 11/16/21 varenicline 1 mg tablet See Rx Instructions .Route 03/07/22 .COMPLEX #180 tabs pantoprazole 40 mg tablet,delayed 40 mg PO DAILY #30 tabs 05/26/22 release Allergies Allergy/AdvReac Type Severity Reaction Status Date / Time Decongestants AdvReac Intermediate Unknown Uncoded 07/11/23 19:35 Review of Systems Eyes: Denies: change in vision, blurry vision, photophobia, eye discharge, floaters or seeing flashes ENMT: Denies: throat pain, odynophagia, ear or mastoid pain, ear discharge, nasal discharge, epistaxis or sinus pain Card: Denies: chest pain, palpitations, lightheadedness, syncope or pre-syncope Resp: Denies: dyspnea or pain on inspiration GI: Denies: abdominal pain : Denies: flank pain or hematuria Musc: Reports: extremity pain (L foot/great toe) and extremity swelling (L great toe); Denies: neck pain, back pain or joint pain Neuro: Denies: headache(s), numbness in extremities, weakness in extremities, sensory changes or dizziness PFSH ED PFSH: Medical History (Updated 01/23/24 @ 16:31 by MARITZA Jason) Brain aneurysm Right ureteral stone Surgical History delivery delivered 3 C-SECTIONS Family History Mother Hypertension Father Hypertension Social History Alcohol intake: never Substance/Drug Use: never Household members: children Marital status: Current occupational status: unemployed Physical Exam Const: COMMON NORMALS: no acute distress, average body habitus, patient oriented x3, no limitations, healthy appearing, alert and well nourished GENERAL APPEARANCE: cooperative ORIENTATION/CONSCIOUSNESS: Yes awake, Yes oriented to person, Yes oriented to place and Yes oriented to time HENMT: COMMON NORMALS: normocephalic, atraumatic and TM's normal bilaterally HEAD & SCALP: normal to inspection, normocephalic and atraumatic; no Simon's sign, no hematoma and no raccoon eyes FACE & SINUS: normal facial exam TYMPANIC MEMBRANE: TM's normal bilaterally MOUTH: other (no intraoral injuries noted) Eye: COMMON NORMALS: Equal, round and reactive pupils present and EOMs intact bilaterally GENERAL EYE: appearance normal, both eyes and all related structures and normal light reflex PUPIL: Yes Equal, round and reactive pupils present DIRECT OPHTHALMOSCOPY: Yes normal light reflex Neck/C-Spine: COMMON NORMALS: full ROM GENERAL: Yes normal visual inspection CERVICAL SPINE: Yes cervical ROM normal, No pain with cervical ROM, No Cervical spine tenderness, No step off deformity and No Paracervical muscle tenderness Chest: COMMONS NORMALS: normal inspection of the chest and normal palpation of entire chest wall Resp: COMMON NORMALS: normal respiratory effort and clear to auscultation bilaterally AUSCULTATION: clear to auscultation bilaterally Cardio: COMMON NORMALS: regular rate and regular rhythm RATE: regular rate RHYTHM: regular rhythm GI: COMMON NORMALS: Normal to inspection, nondistended, normoactive bowel sounds present, Soft to palpation, non-tender, No hepatosplenomegaly present and no masses INSPECTION: Yes normal to inspection and No abdominal wall ecchymosis AUSCULTATION: Yes normoactive bowel sounds PALPATION: Yes Soft to palpation and Yes No hepatosplenomegaly present Back/Pelvis: COMMON NORMALS: thoracic and lumbar spine normal to inspection, no thoracic nor lumbar tenderness and thoraco-lumbar ROM normal Extremity: GENERAL: Yes normal exam except as noted LEFT LOWER EXTREMITY: Yes foot & digits (pain/edema/ecchymosis ) Left foot and digits: Yes neurovascular exam (normal) OTHER: full ROM of L hip/knee/ankle; she has ecchymosis and swelling to L great toe; no deformity or nail injury Neuro: LORRIE COMA SCALE: document GCS findings Lorrie coma scale eye opening: Spontaneous Lorrie coma scale verbal response: Orientated [place] coma scale motor response: Obey commands [place] coma scale total score: 15 COMMON NORMALS: patient oriented x3, CN's II-XII intact bilaterally, moves all extremities, no focal motor deficits, no sensory deficits noted and gait normal SENSORIUM/ORIENTATION: Yes alert, Yes oriented to person, Yes oriented to place and Yes oriented to time SPEECH: speech normal GAIT: Yes Normal gait present Skin: COMMON NORMALS: no rashes or lesions noted GENERAL SKIN EXAM: no rashes or lesions noted TRAUMA: no lacerations or abrasions Course Vital Signs: Vital signs: Vital Signs Temperature 98.0 F 01/23/24 15:11 Pulse Rate 78 01/23/24 15:11 Respiratory Rate 16 01/23/24 15:11 Blood Pressure 142/70 01/23/24 15:11 Pulse Oximetry 98 01/23/24 15:11 MDM - Fall Medical Decision Making XR of the left foot appears to have a nondisplaced fracture involving her distal phalanx of her left great toe. Patient will be placed in a hard soled shoe, given crutches, and will follow-up with podiatry. Recommend ice and elevation as well as [id number] analgesics. XR interpretation done by ED provider, pending radiology final review Discharge Plan Discharge Patient Disposition: Home Clinical Impression: Closed fracture of distal phalanx of left great toe Qualifiers: Encounter type: initial encounter Fracture alignment: nondisplaced Qualified Code(s): S92.425A - Nondisplaced fracture of distal phalanx of left great toe, initial encounter for closed fracture Condition: Stable Prescriptions: No Action minocycline 100 mg capsule 100 mg PO DAILY nystatin 100,000 unit/mL suspension 6 ml PO QID 7 Days Qty: 200 0RF Rx Instructions: swish and swallow topiramate [Topamax] 100 mg tablet 100 mg PO ONCE 90 Days Qty: 90 3RF albuterol sulfate [ProAir HFA] 90 mcg/actuation HFA aerosol inhaler 2 puff INHALATION 6XD PRN (Reason: shortness of breath or wheezing) Qty: 18 2RF budesonide-formoterol [Symbicort] 80-4.5 mcg/actuation HFA aerosol inhaler 2 puff INHALATION BID 30 Days Qty: 10.2 1RF Rx Instructions: patient will need to setup with a new provider for refills varenicline 1 mg tablet See Rx Instructions .ROUTE .COMPLEX Qty: 180 0RF Dose Instruction: TAKE; 1/2 TABLET IN AM FOR 7 DAYS THEN 1 IN AM, 1 AT 4PM. TAKE WITH FOOD/ NEVER AFTER 5PM Rx Instructions: TAKE; 1/2 TABLET IN AM FOR 7 DAYS THEN 1 IN AM, 1 AT 4PM. TAKE WITH FOOD/ NEVER AFTER 5PM Tessalon Perles 100 mg capsule 100 mg PO BID PRN (Reason: cough) Qty: 10 0RF Symbicort 80-4.5 mcg/actuation Hfa Aerosol Inhaler See Rx Instructions .ROUTE .COMPLEX Rx Instructions: ... pantoprazole 40 mg tablet,delayed release (DR/EC) 40 mg PO DAILY Qty: 30 0RF Discharge Orders: Discharge ED (Routine); Ordered 01/23/24 Ordered By: Sloane Bellamy Referrals: Betty Smith PA [Primary Care Provider] - Patient Instructions: Toe Fracture (ED) Activity Restrictions/Additional Instructions: You need to stay in your hard soled shoe at all times apart from showering or bathing. You may use the crutches for weightbearing as tolerated. Ice and elevate the extremity. Case management should reach out to you shortly to help set you up with your follow-up orthopedic appointment. Coding Level of Care Code ED [employer] for Nataly Wolf
--- NOTE | 2024-01-23 15:52 | XRR_ITS ---
PROCEDURE INFORMATION: Exam: XR Left Foot Exam date and time: 01/23/2024 3:57 PM Age: 48 years old Clinical indication: Injury or trauma; Fall; Blunt trauma; Foot; Left; Additional info: Injury/fall TECHNIQUE: Imaging protocol: Radiologic exam of the left foot. Views: 3 or more views. COMPARISON: No relevant prior studies available. FINDINGS: Bones/joints: Mild hallux valgus. There are small marginal osteophytes and subchondral cystic changes across the 1st metatarsophalangeal joint. Small marginal osteophytes are present across the 1st interphalangeal joint as well. Curvilinear lucency through the lateral aspect of the base of the 1st digit distal phalanx is seen only on 1 image and may represent an overlying shadow or a nondisplaced fracture. Soft tissues: Normal. XR/XR foot LT min 3V* [id number] IMPRESSION: Curvilinear lucency through the lateral aspect of the base of the 1st digit distal phalanx is seen only on 1 image and may represent an overlying shadow or a nondisplaced fracture.
[2024-01-23 16:38] VITALS: BP 115/75; PULSE 70; O2SAT 95
--- NOTE | 2024-01-25 09:25 | DCPLANNER ---
messaged podiatry for er f/u
== END 2024-01-23 16:40 | disposition home or self-care (01) ==
PROVIDERS: Emergency Provider Physician Assistant; PCP Physician Assistant
DX: S92.425A Nondisplaced fracture of distal phalanx of left great toe, initial encounter for closed fracture (principal); W01.0XXA Fall on same level from slipping, tripping and stumbling without subsequent striking against object, initial encounter
CPT/HCPCS: 73630; 99283; E0114

== ENCOUNTER 2024-01-30 08:57 | Outpatient (CLI) | payer MEDICAID, SELFPAY ==
--- NOTE | 2024-01-30 08:59 | MM_ITS ---
WS: [id number] BILATERAL 3D TOMOSYNTHESIS DIGITAL SCREENING MAMMOGRAPHY WITH CAD CLINICAL INFORMATION: SCREENING HISTORY: Screening mammogram. No current complaints. COMPARISON: 2022 TECHNIQUE: Bilateral CC and MLO views. FINDINGS: Scattered fibroglandular densities bilaterally. No suspicious focal mass, asymmetry, calcifications, or architectural distortion. No evidence of malignancy. Stable incidental punctate calcifications. St able intramammary lymph nodes. MM/MM scr tomosynthesis [id number] IMPRESSION: DENSITY: There are scattered areas of fibroglandular density. BI-RADS: 2 - Benign. FOLLOW UP: 1 Year Follow-up Recommend return to annual screening mammography.
== END 2024-01-30 08:58 | disposition home or self-care (01) ==
LOC: RAD 08:58
PROVIDERS: PCP Physician Assistant; Visit Provider Physician Assistant
DX: Z12.31 Encounter for screening mammogram for malignant neoplasm of breast (principal); R92.323 Mammographic fibroglandular density, bilateral breasts; R92.1 Mammographic calcification found on diagnostic imaging of breast
CPT/HCPCS: 77063; 77067

== ENCOUNTER 2024-11-22 14:09 | Outpatient (CLI) | payer MEDICAID, SELFPAY ==
--- NOTE | 2024-11-22 14:15 | MR_ITS ---
WS: [id number] MRI LEFT SHOULDER NONCONTRAST TECHNIQUE: Sagittal T2, coronal T1, T2 and proton density imaging. Axial gradient PDE imaging. CLINICAL INFORMATION: INTERNAL DERANGEMENT OF LEFT SHOULDER COMPARISON: None. FINDINGS: Moderate degenerative arthritis AC joint with hypertrophic changes. Moderate downsloping acromion. Small amount of fluid and edema. Narrowing of the subacromial space. Subacromial spurring with impingement on the underlying supraspinatus and infraspinatus. Mild chronic thinning of the supraspinatus with tendinopathy. Infraspinatus appears intact. Normal teres minor. Subscapularis tendon appears normal. Normal biceps tendon within the bicipital groove. Glenoid labrum appears grossly intact. Intra-articular biceps tendon appears intact with mild tendinopathy. Normal bone marrow signal in the humerus and glenoid. Biceps labral anchor appears intact. MR/MR shoulder LT wo con* [id number] IMPRESSION: 1. Moderate downsloping acromion with subacromial spurring. Impingement on the underlying supraspinatus and infraspinatus. 2. Tendinopathy supraspinatus with mild chronic thinning. Normal infraspinatus . 3. Rotator cuff is otherwise intact and normal in appearance. 4. Biceps tendon intact within the bicipital groove. 5. Mild tendinopathy intra-articular biceps tendon. 6. No other acute findings.
== END 2024-11-22 14:10 | disposition home or self-care (01) ==
LOC: RAD 14:10
PROVIDERS: PCP Physician Assistant; Visit Provider Physician Assistant
DX: M25.812 Other specified joint disorders, left shoulder (principal); M75.22 Bicipital tendinitis, left shoulder
CPT/HCPCS: 73221